=== PATIENT | male | born 1935 | race Caucasian/White ===

== ENCOUNTER 2019-09-08 14:02 | Emergency (ER) | payer MEDICARE, SELFPAY ==
--- NOTE | ~2019-09-08 | XR_ITS ---
EXAMINATION: XR humerus LT EXAM DATE: 09/08/2019 14:39 INDICATION: Initial encounter following injury, with pain of the left humerus. TECHNIQUE: Left humerus orthogonal oblique projections. Correlation is made to left shoulder exam . FINDINGS: There are no acute left humerus fractures or dislocations identified. There is no subcutan eous gas. The soft tissue is unremarkable. There are no radiopaque foreign bodies. 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 IMPRESSION: No acute osseous findings. Reviewed, dictated and finalized at location B. DENTIAL CONSTRUCTION INSTRUCTOR IMPRESSION: No acute osseous findings.
--- NOTE | 2019-09-08 14:15 | ED.UPPEXIN ---
HPI - Extremity Injury (Upper) General Chief Complaint: Extremity Injury, Upper Stated Complaint: Shoulder Pain,Elbow pain Time Seen by Provider: 09/08/19 14:15 Source: patient and RN notes reviewed History of Present Illness HPI narrative: Is an 83-year-old male that presents the urgent care with complaints of left elbow and shoulder pain due to fall on Friday. Patient states that he fell when walking at his home on the wood floor, tripping over his own feet. Patient denies any loss of consciousness. Spouse did witness the fall. States that he did not want to go to the emergency room and the fire department put him back in his bed and he fell asleep. Patient has been taking Tylenol for the pain. Patient also reports of a small skin tear to the left elbow. No other acute complaints. No acute distress noted. Patient read the plan of care. Related Data Home Medications Medication Instructions Recorded Confirmed ascorbic acid (vitamin C) 500 mg PO DAILY 09/08/19 09/08/19 baclofen 10 mg DAILY 09/08/19 09/08/19 buspirone 5 mg DAILY 09/08/19 09/08/19 clopidogrel 75 mg DAILY 09/08/19 09/08/19 lisinopril 10 mg DAILY 09/08/19 09/08/19 multivit with min-folic acid 0.4 mg PO 09/08/19 [Adult One Daily Multivitamin] potassium chloride 10 meq PO DAILY 09/08/19 09/08/19 simvastatin 20 mg DAILY 09/08/19 09/08/19 vitamin E 1,000 unit PO DAILY 09/08/19 09/08/19 Allergies Allergy/AdvReac Type Severity Reaction Status Date / Time No Known Allergies Allergy Verified 09/08/19 14:05 Review of Systems Review of Systems: Narrative: CONSTITUTIONAL: Denies fever, chills, or sweats. EYES: Denies visual changes, redness, or discharge. ENT: Denies rhinorrhea, congestion, sore throat, or otalgia. CARDIOVASCULAR: Denies chest pain, palpitations, or edema. RESPIRATORY: Denies cough or dyspnea. GASTROINTESTINAL: Denies abdominal pain, nausea, vomiting, or diarrhea. GENITOURINARY: Denies dysuria or hematuria. SKIN: Reports of abrasion to the left elbow MUSCULOSKELETAL: Reports of left elbow and left shoulder pain NEUROLOGIC: Denies headache, numbness, or weakness. PMFSH Social History Social History Gender identity (if verbalized by the patient): Male Comments At the time of my signature, I reviewed and agree with the nursing past medical, surgical, social, and family history. There is no relevant family history pertinent to the patient complaint. Exam Narrative: Exam Narrative: GENERAL: This is a well-nourished, well-developed patient, in no apparent distress. HEAD: normocephalic, atraumatic. EYES: PERRL. Sclera clear/white. Vision is grossly intact. EARS: External ears normal NOSE: External nose normal with no obvious nasal discharge THROAT: Mucous membranes moist NECK: Neck supple CARDIOVASCULAR: Regular rate and rhythm without murmurs, gallops, or rubs. GASTROINTESTINAL: Abdomen soft, non-tender, nondistended. Bowel sounds are active. No hepato-splenomegaly, or palpable masses. No guarding. SKIN: 1.5 cm linear closed abrasion noted to left elbow. Warm, intact with no suspicious lesions or rash, good texture and turgor. NEURO: awake, alert, and oriented to person, place and time. There were no obvious focal neurologic abnormalities. EXTREMITIES: No clubbing, cyanosis, or edema. Range of motion to left elbow within normal limits, to patient's ability. No obvious deformity, edema, ecchymosis, erythema to left elbow or left shoulder. Course Vital Signs Vital signs: Vital Signs Temperature 98.4 F 09/08/19 14:21 Pulse Rate 105 H 09/08/19 14:21 Respiratory Rate 16 09/08/19 14:21 Blood Pressure 112/67 09/08/19 14:21 Pulse Oximetry 98 09/08/19 14:21 Temperature 98.4 F 09/08/19 14:21 Pulse Rate 105 H 09/08/19 14:21 Respiratory Rate 16 09/08/19 14:21 Blood Pressure 112/67 09/08/19 14:21 Pulse Oximetry 98 09/08/19 14:21 Reviewed MDM - Extremity Injury (Upper) MDM Narrative Medical decision ariane
[2019-09-08 14:21] VITALS: BP 112/67; PULSE 105; RESP 16; TEMP 36.9; O2SAT 98
== END 2019-09-08 15:06 | disposition home or self-care (01) ==
PROVIDERS: Emergency Provider Nurse Practitioner Family
DX: M25.512 Pain in left shoulder (principal); S50.312A Abrasion of left elbow, initial encounter; M25.522 Pain in left elbow; W01.0XXA Fall on same level from slipping, tripping and stumbling without subsequent striking against object, initial encounter; Z86.73 Personal history of transient ischemic attack (TIA), and cerebral infarction without residual deficits; E78.00 Pure hypercholesterolemia, unspecified; I10 Essential (primary) hypertension; K21.9 Gastro-esophageal reflux disease without esophagitis; M19.90 Unspecified osteoarthritis, unspecified site; F41.9 Anxiety disorder, unspecified; F32.9 Major depressive disorder, single episode, unspecified; Z90.79 Acquired absence of other genital organ(s)
CPT/HCPCS: 73060; 99213; G0463

== ENCOUNTER 2019-09-30 16:07 | Inpatient (IN) | payer MEDICARE, SELFPAY ==
[2019-09-30] VITALS (11 sets, daily range): BP systolic 100–131; BP diastolic 65–85; PULSE 100–143; RESP 14–35; TEMP 37; O2SAT 92–100
--- NOTE | ~2019-09-30 | XR_ITS ---
EXAMINATION: XR chest 1V portable INDICATION: Hypoxemia, metabolic acidosis TECHNIQUE: Portable AP chest at 0822 hours COMPARISON: 09/30/19 FINDINGS: There are persistent retrocardiac opacities. The right lung is clear. No pleural effusion o r pneumothorax is identified. There is stable cardiomegaly. IMPRESSION: 1. Persistent retrocardiac opacities without significant change, consistent with atelectasis versus p neumonia. 2. Stable cardiomegaly. Reviewed, dictated and finalized at location A. EAR MEDICINE PET CT TECHNOLOGIST IMPRESSION: 1. Persistent retrocardiac opacities without significant change, consistent wit h atelectasis versus pneumonia. 2. Stable cardiomegaly.
--- NOTE | ~2019-09-30 | US_ITS ---
EXAMINATION: US venous doppler [facility] DATE: 10/04/2019 14:51 INDICATION: Acute pulmonary emboli. TECHNIQUE: Grayscale ultrasound images without and with compression and Doppler ultrasound images of the bilateral lower extremity veins were obtained. COMPARISON: None. FINDINGS: The visualized portions of right common femoral vein, profunda (deep) femoral vein, femoral vein, pop liteal vein, peroneal veins, posterior tibial veins, and greater saphenous vein outflow are patent. The visualized portions of left common femoral vein, profunda femoral vein, femoral vein, popliteal v ein, peroneal veins, posterior tibial veins, and greater saphenous vein outflow are patent. IMPRESSION: 1. No deep venous thrombosis. Reviewed, dictated and finalized at location A. OPERATIONS
--- NOTE | ~2019-09-30 | CT_ITS ---
EXAMINATION: CT brain wo con DATE: 09/30/2019 19:13 INDICATION: Status post fall. Headache. Patient on blood thinners. Evaluate for hemorrhage. TECHNIQUE: Computed tomography (CT) of the head was performed without intravenous contrast. The dose- length product was 605.33 mGy-cm. The mA was adjusted according to patient size. Iterative reconstruc tion technique was employed. COMPARISON: CT dated 12/15/2014 FINDINGS: There is a right parietal lobe infarction which is chronic and unchanged. Chronic right scooby lamic infarct. Chronic left lacunar infarction. There is a chronic infarction of the right mesial tem poral lobe. There is compensatory dilation of the right lateral ventricle. Generalized atrophy. No ac jean-pierre intracranial hemorrhage, infarction or mass. There is intracranial atherosclerosis. Paranasal sin uses and mastoids are pneumatized. No depressed skull fractures. There are scattered mild periventric ular and subcortical white matter changes, most likely related to small vessel ischemic disease (micr oangiopathy). IMPRESSION: 1. No acute intracranial abnormality. No significant change. Reviewed, dictated and finalized at location A. S HAND SUPERVISOR
--- NOTE | ~2019-09-30 | XR_ITS ---
EXAMINATION: XR chest 1V portable DATE: 10/07/2019 05:36 INDICATION: Infiltrates. TECHNIQUE: A single frontal view of the chest was obtained. COMPARISON: Chest single view 10/04/2019, chest CT 10/04/2019 FINDINGS: There are airspace opacities in all left lung zones with a perihilar and basilar predominan ce. There is a small left pleural effusion. No pneumothorax. The heart size is normal. IMPRESSION: 1. Worsened left lung disease, consistent with pneumonia. 2. Worsened small left pleural effusion. Reviewed, dictated and finalized at location A. OR WINDOWS SYSTEMS ADMINISTRATOR
--- NOTE | ~2019-09-30 | XR_ITS ---
XR chest 1V portable 09/30/2019 17:09 Indication: Dyspnea. History of A. fib. Procedure: AP portable chest Comparison: Comparison to multiple prior studies sequentially, with oldest reviewed study dated 11/2010. Findings: Borderline heart size. Retrocardiac airspace disease. There is an age-indeterminate left cl avicular fracture. Severe degenerative changes of the shoulders with probable rotator cuff tears. Impression: 1: Retrocardiac airspace disease may represent atelectasis or developing pneumonia. 2: Age indeterminate left clavicular fracture. 3: Cardiomegaly. Reviewed, dictated and finalized at location A. BALL INSPECTOR Impression: 1: Retrocardiac airspace disease may represent atelectasis or developing pneumo shayna. 2: Age indeterminate left clavicular fracture. 3: Cardiomegaly.
--- NOTE | ~2019-09-30 | CT_ITS ---
EXAMINATION: CTA chest PE protocol EXAM DATE: 10/04/2019 11:01 INDICATION: New onset hypoxia, acidosis, low blood pressure, shortness of breath. TECHNIQUE: Spiral CTA of the chest (pulmonary arteries) was performed with 100 cc Omnipaque 350 intr avenous contrast injection. Images were acquired during the pulmonary arterial phase. Coronal maxi mum intensity projection 3D-reconstructions were created by the technologist on dedicated workstation . Axial, coronal and sagittal reformatted images were reviewed. The dose-length product (DLP) for t his examination was 672.11 mGy-cm. The exposure was tailored according to patient size (auto mA exp osure control), and iterative reconstruction (ASIR) was used as additional dose reduction technique. Comparison is made to prior examination from 12/15/2014. Correlation was made with chest x-ray 0. FINDINGS: There are several right lower lobe segmental pulmonary emboli, low clot burden. No thorac ic aortic dissection. The lungs are clear. Small pericardial and right pleural effusions. Small to moderate left pleural effusion with adjacent subsegmental atelectasis. There is subsegmental right b asilar airspace disease probably atelectasis. There is left lower lobe superior segmental mass or consolidation, does appear to have some extension into the hilum. This measures about 6.5 x 5.0 cm. Tracheobronchial tree is patent. There is no med iastinal, hilar or axillary lymphadenopathy. There is no pneumothorax. Heart normal in size. Th ere is moderate coronary arterial calcification, arterial sclerosis. Fluid density right liver lobe hypodensity measuring 1.3 cm probably cyst. There is thoracic spondylosis without osteoblastic or os teolytic lesions identified. IMPRESSION: 1. Right lower lobe segmental pulmonary emboli. 2. Left lower lobe segmental masslike opacity, malignancy or possibly necrotic pneumonia, but appear s to have some soft tissue extension into the hilum. 3. Segmental left basilar, subsegmental right basilar atelectasis. 4. Small to moderate left, small right pleural effusions. Small pericardial effusion. I placed two phone calls, 1 to hospitalist service extension and the other to ordering clinician, was unsuccessful. Will attempt again. Reviewed, dictated and finalized at location B. ILLERY WORKER IMPRESSION: 1. Right lower lobe segmental pulmonary emboli. 2. Left lower lobe segmental masslike opacity, malignancy or possibly necrotic pneumonia, but appears to have some soft tissue extension into the hilum. 3. Segmental left basilar, subsegmental right basilar atelectasis. 4. Small to moderate left, small right pleural effusions. Small pericardial ef fusion. I placed two phone calls, 1 to hospitalist service extension and the other to [facility] behavioral [facility] clinician, was unsuccessful. Will attempt again.
--- NOTE | ~2019-09-30 | CT_ITS ---
EXAMINATION: CT brain wo con EXAM DATE: 10/04/2019 14:58 INDICATION: Change in mental status, transient alteration of awareness. TECHNIQUE: Spiral CT of the head was performed without contrast. Axial, coronal and sagittal images were reviewed. The dose-length product (DLP) for this examination was 681.00 mGy-cm. The exposure w as tailored according to patient size, and iterative reconstruction (ASIR) was used as additional dos e reduction technique. Comparison is made to prior examination from 09/30/2019. FINDINGS: There is no acute intraparenchymal hemorrhage. No evidence of intraparenchymal brain mass lesion. No evidence of acute infarction. Please note that initial head CT has limited sensitivity f or small or acute infarctions. Punctate old left basal ganglia lacunar infarction. There is mild pe riventricular and subcortical hypodensity, nonspecific but probably related to small vessel ischemic disease. There is old small right prior lobe subcortical infarction. There is small old right subinsu lar infarction. There is moderate prominence of the sulci and ventricles related to cerebral atrophy. There is intracranial carotid arteriosclerosis. There are no extra-axial collections. There is n o mass effect or midline shift. The orbits are unremarkable. Soft tissue is unremarkable. The visu alized sinuses and mastoid air cells are well aerated. There is no significant interval change. IMPRESSION: 1. No acute intracranial findings. 2. Chronic age related findings. 3. Small old infarctions. Reviewed, dictated and finalized at location B. E DOG INSTRUCTOR
--- NOTE | ~2019-09-30 | XR_ITS ---
XR lumbar spine 2-3V 09/30/2019 19:02 Indication: Low back pain Procedure: 3 views lumbar spine Comparison: 09/02/2018 Findings: Mild chronic superior endplate compression deformity of T12. There is loss of disc height a t all lumbar levels. There is moderate facet hypertrophy of the mid and lower lumbar spine. No acute fracture, subluxation or spondylolisthesis. There is levoscoliosis centered at L3-4. There are radiat ion therapy implant seeds in the prostate bed. Impression: 1: No acute abnormality of the lumbar spine. 2: Severe lumbar spondylosis with levoscoliosis. Reviewed, dictated and finalized at location A. ROLLER Impression: 1: No acute abnormality of the lumbar spine. 2: Severe lumbar spondylosis with levoscoliosis.
--- NOTE | 2019-09-30 16:21 | ECG_ITS ---
Measurements Intervals [place] Rate: 148 P: MO: 0 QRS: 68 QRSD: 98 T: -89 QT: 304 QTc: 478 Interpretive Statements ATRIAL FIBRILLATION WITH RAPID VENTRICULAR RESPONSE VENTRICULAR PREMATURE COMPLEX NONSPECIFIC ST & T-WAVE ABNORMALITY- INF/LAT LEADS BASELINE ARTIFACT- I, III, AVR, AVL, AVF, V1-V6 ABNORMAL ECG Electronically Signed On 09-30-2019 16:43:57 MOLD INSPECTOR by Tez Ramos D.O.
--- NOTE | 2019-09-30 16:37 | ED.FALL ---
HPI - Fall General Chief Complaint: Fall Stated Complaint: FALL Time Seen by Provider: 09/30/19 16:33 Source: patient and family () Mode of arrival: EMS Limitations: no limitations History of Present Illness HPI Narrative: The pt is an 84 y/o male who presents to the ED, via EMS, c/o fall. Pt's states that the pt has had some falls recently; she notes that he fell 2 weeks ago, and has experienced 3 falls in 5 weeks. Pt states that he had his hand on a chair to move it when he then fell because of how stable the chair was. He states that he was on the floor for 3 hours. He states that he did fall onto his buttocks. He states that he did not hit his head or experience LOC. Pt notes that after, he began to experience lower back pain. She states that his left foot is edematous and this began a few days ago. Pt's notes that he has been experiencing lower back pain with his other falls. 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 She also notes that he has a PMHx of bradycardia, but notes that she is unsure if he has a PMHx of AFIB. She notes that he takes Plavix. complaint: fall Fall from: standing Place fall occurred: home Loss of consciousness: none Symptoms prior to fall: none Context: tripped/slipped Location of injury: buttocks Associated symptoms (after fall): other (Lower back pain, left foot edema (Onset few days ago, per pt's )) Related Data Home Medications Medication Instructions Recorded Confirmed ascorbic acid (vitamin C) 500 mg PO DAILY 09/08/19 09/08/19 baclofen 10 mg DAILY 09/08/19 09/08/19 buspirone 5 mg DAILY 09/08/19 09/08/19 clopidogrel 75 mg DAILY 09/08/19 09/08/19 lisinopril 10 mg DAILY 09/08/19 09/08/19 multivit with min-folic acid 0.4 mg PO 09/08/19 [Adult One Daily Multivitamin] potassium chloride 10 meq PO DAILY 09/08/19 09/08/19 simvastatin 20 mg DAILY 09/08/19 09/08/19 vitamin E 1,000 unit PO DAILY 09/08/19 09/08/19 Allergies Allergy/AdvReac Type Severity Reaction Status Date / Time No Known Allergies Allergy Verified 09/08/19 14:05 Review of Systems Review of Systems: All systems reviewed & are unremarkable except as noted in HPI and below Cardiovascular: Cardiovascular: Reports leg edema (Left foot, onset few days ago per pt's ) Musculoskeletal: Musculoskeletal: Reports back pain (Lower) Neurologic: Denies other (Head injury, LOC) PMFSH Past Medical History Medical History (Updated 09/30/19 @ 20:22 by Francis Mancilla MD) Bradycardia CVA (cerebral vascular accident) Residual left-sided weakness GERD (gastroesophageal reflux disease) HLD (hyperlipidemia) HTN (hypertension) Hx of brachytherapy Inguinal hernia Prostate cancer TIA (transient ischemic attack) Surgical History Surgical History (Updated 09/30/19 @ 16:50 by Jian Eden) H/O inguinal hernia repair Hx of tonsillectomy Social History Social History (Updated 09/30/19 @ 16:51 by Jian Eden) Smoking status: Former smoker Gender identity (if verbalized by the patient): Male Exam Narrative: Exam Narrative: General appearance: Well-developed, well-nourished Skin: Normal color Head: Normocephalic, nontraumatic Eyes: Clear conjunctiva ENT: Oropharynx normal, ears normal, nose normal Neck: Supple, nontender Chest and respiratory: Airway patent, no respiratory distress, no accessory muscle use Heart: Tachycardia, irregular irregularity Abdomen: Soft, nontender, no organomegaly, quiet bowel sounds Vascular: Normal peripheral pulses, normal capillary refill. Musculoskeletal: Normal range of motion, nontender back Neurologic: Alert and oriented ?3, left hemiplegia
[2019-09-30 17:26] LABS: Basophils Absolute Auto 0.1 K/mm3 (0.0-0.1); Basophils Percent Auto 0.6 % (0.2-1.2); Eosinophils Percent Auto 0.1 % (0-4.4); Hematocrit 34.5 % (42.0-52.0); Hemoglobin 10.8 g/dL (14.0-18.0); Immature Granulocyte Absolute 0.23 K/mm3 (0.00-0.031); Immature Granulocyte Percent A 1.8 % (0-0.5); Lymphocytes Absolute Auto 1.26 K/mm3 (0.9-3.2); Lymphocytes Percent Auto 10.1 % (18.3-44.2); Mean Corpuscular HGB Conc 31.3 g/dl (32-36); Mean Corpuscular Hemoglobin 29.5 pg (26-34); Mean Corpuscular Volume 94.3 fl (80-100); Mean Platelet Volume 11.8 fl (7.4-10.4); Monocytes Absolute Auto 1.1 K/mm3 (0.1-0.6); Monocytes Percent Auto 8.8 % (2.6-8.5); Neutrophils Absolute Auto 9.8 K/mm3 (1.3-6.7); Neutrophils Percent Auto 78.6 % (45.5-73.1); Platelet Count Result 345 k/mm3 (150-375); Red Blood Count 3.66 M/mm3 (4.6-6.20); White Blood Count 12.5 K/mm3 (4.5-10.0)
[2019-09-30 17:31] LABS: INR 1.1; Prothrombin Time 13.6 Seconds (11.1-14.7)
[2019-09-30 17:32] LABS: Partial Thromboplastin Time 28.1 SECONDS (22.3-36.8)
[2019-09-30 17:33] LABS: Alanine Aminotransferase 18 U/L (4-50); Albumin Level 3.9 g/dL (3.5-5.1); Alkaline Phosphatase 130 U/L (38-126); Aspartate Amino Transferase 33 U/L (17-59); Bilirubin,Total 0.9 mg/dL (0.2-1.3); Blood Urea Nitrogen 22 mg/dL (9-20); Calcium 9.3 mg/dL (8.4-10.2); Carbon Dioxide 27 mmol/L (22-30); Chloride 100 mmol/L (98-107); Estimated CRCL calculation 42 ml/min; Estimated Glomerular Filt Rate > 60; Glucose 105 mg/dL (75-110); Potassium 4.3 mmol/L (3.4-5.0); Sodium 140 mmol/L (137-145)
[2019-09-30 17:45] LABS: NT Pro B Type Natriuretic Pept 4200 PG/ML (5-100); Troponin I < 0.012 ng/mL (0.000-0.034)
[2019-09-30 17:59] LABS: INR 1.2; Partial Thromboplastin Time 28.4 SECONDS (22.3-36.8); Prothrombin Time 14.4 Seconds (11.1-14.7)
[2019-09-30 18:01] LABS: Basophils Absolute Auto 0.1 K/mm3 (0.0-0.1); Basophils Percent Auto 0.6 % (0.2-1.2); Eosinophils Percent Auto 0.1 % (0-4.4); Hematocrit 31.2 % (42.0-52.0); Hemoglobin 9.9 g/dL (14.0-18.0); Immature Granulocyte Absolute 0.25 K/mm3 (0.00-0.031); Immature Granulocyte Percent A 1.9 % (0-0.5); Lymphocytes Absolute Auto 1.69 K/mm3 (0.9-3.2); Lymphocytes Percent Auto 12.9 % (18.3-44.2); Mean Corpuscular HGB Conc 31.7 g/dl (32-36); Mean Corpuscular Volume 94.5 fl (80-100); Mean Platelet Volume 11.7 fl (7.4-10.4); Monocytes Absolute Auto 1.2 K/mm3 (0.1-0.6); Monocytes Percent Auto 8.9 % (2.6-8.5); Neutrophils Absolute Auto 9.9 K/mm3 (1.3-6.7); Neutrophils Percent Auto 75.6 % (45.5-73.1); Platelet Count Result 310 k/mm3 (150-375); Red Cell Distribution Width 16.8 % (11.5-14.5); White Blood Count 13.1 K/mm3 (4.5-10.0)
[2019-09-30] MEDS: ENOXAPARIN 80 MG/0.8 ML SYRINGE 70 MG SUB-Q (20:09)
[2019-09-30 20:48] LABS: Troponin I < 0.012 ng/mL (0.000-0.034)
--- NOTE | 2019-09-30 21:09 | PC.NURSE ---
Per Sal in pharmacy, Cardizem and Lovaquin are compatible for IV infusion together.
--- NOTE | 2019-09-30 21:34 | PC.NURSE ---
Per EDP Laurent, decrease Cardizem to 5mL/hr due to patient's blood pressure.
[2019-09-30 23:40] LABS: Troponin I 0.013 ng/mL (0.000-0.034)
[2019-10-01] VITALS (15 sets, daily range): BP systolic 91–113; BP diastolic 54–69; PULSE 96–120; RESP 18–32; TEMP 36.2–37.4; O2SAT 95–100; BMI 22.4
--- NOTE | 2019-10-01 00:25 | PM.IMHP ---
H&P: HPI History of Present Illness Chief complaint: Fall Narrative: Date and time of patient contact: 09/30/2019 at 10:35 p.m. Hilton Joiner is a 84 year old male with a past medical history of hypertension and prior history of atrial fibrillation found on old records who presented to the ER due to a fall. The patient has had 3 falls in the last 5 weeks. Patient was reportedly on the floor for about 3 hours when he fell due to the chair being unstable. Patient reportedly fell onto his buttocks but did not hit his head or lose consciousness. The patient cried out multiple times during my evaluation with no stimulation. He complained that the tape on his arm was causing excruciating pain. He complained that the blankets that were lying across his chest were laying across his neck and causing him discomfort. He was restless and was a difficult historian at best. I offered to help the patient reposition and he was unwilling to reposition. According to the ER notes the patient did experience some low back pain after the fall. His also reported that the patient's left foot was edematous and that the edema acute began a few days ago. The patient has chronic left-sided weakness and ambulates with a cane. His reported that he had history of bradycardia but was unsure if the patient has history of atrial fibrillation. He did have an event monitor placed September 2017. Patient was alert and oriented times 2-3 at the time of my evaluation. Source of information is ER records as the patient self is a poor historian. Review of Systems Review of Systems: ROS unobtainable: unobtainable due to mental status [facility] Past Medical History Medical History (Updated 10/01/19 @ 00:51 by Kita Apodaca DO) Bradycardia CVA (cerebral vascular accident) Residual left-sided weakness ataxia and vertigo 2010 with recurrent CVA February 2013 with right parietal lobe subacute infarction Diastolic dysfunction Noted on echocardiogram from April 2018 with pseudonormal grade 2 diastolic dysfunction and eat ejection fraction of 70-75%. Mild right ventricular hypokinesis, mild mitral valve regurgitation, mild left atrial enlargement GERD (gastroesophageal reflux disease) HLD (hyperlipidemia) HTN (hypertension) Hx of brachytherapy Prostate cancer Status post brachytherapy 2007 TIA (transient ischemic attack) Surgical History Surgical History (Updated 10/01/19 @ 00:49 by Kita Apodaca DO) H/O inguinal hernia repair Left History of bilateral cataract extraction Hx of tonsillectomy Family History Family History (Updated 10/01/19 @ 00:47 by Kita Apodaca DO) Daughter Breast cancer Sibling Cerebrovascular accident Social History Social History (Updated 10/01/19 @ 00:52 by Kita Apodaca DO) Social History: 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 He has been to his for 53 years. He is a former smoker and quit smoking in 1964. He occasionally drinks a glass of wine. Code status: Full code per EMR Smoking status: Former smoker Gender identity (if verbalized by the patient): Male Meds Home Medications and Allergies Home Medications Medication Instructions Recorded Confirmed Type ascorbic acid (vitamin C) 500 mg PO DAILY 09/08/19 09/30/19 History baclofen 10 mg PO DAILY 09/08/19 10/01/19 History buspirone 5 mg PO DAILY 09/08/19 10/01/19 History clopidogrel 75 mg PO DAILY 09/08/19 10/01/19 History lisinopril 10 mg PO DAILY 09/08/19 10/01/19 History multivit with min-folic acid 0.4 mg PO DAILY 09/08/19 09/30/19 History [Adult One Daily Multivitamin] potassium chloride 20 meq PO DAILY 09/08/19 09/30/19 History simvastatin 20 mg PO HS 09/08/19 10/01/19 History vitamin E 1,000 unit PO DAILY 09/08/19 09/30/19 History Allergies Allergy/AdvReac Type Severity Reaction Status Date / Time No Known Allergies Allergy Verified 09/08/19
[2019-10-01] MEDS: QUEtiapine FUMARATE 12.5 MG TABLET PO (00:48)
[2019-10-01 04:28] LABS: Basophils Percent Auto 0.4 % (0.2-1.2); Eosinophils Percent Auto 0.1 % (0-4.4); Hematocrit 29.3 % (42.0-52.0); Hemoglobin 9.5 g/dL (14.0-18.0); Immature Granulocyte Absolute 0.17 K/mm3 (0.00-0.031); Immature Granulocyte Percent A 1.5 % (0-0.5); Lymphocytes Absolute Auto 1.88 K/mm3 (0.9-3.2); Mean Corpuscular HGB Conc 32.4 g/dl (32-36); Mean Corpuscular Hemoglobin 30.1 pg (26-34); Mean Corpuscular Volume 92.7 fl (80-100); Mean Platelet Volume 10.6 fl (7.4-10.4); Monocytes Absolute Auto 1.2 K/mm3 (0.1-0.6); Monocytes Percent Auto 10.8 % (2.6-8.5); Neutrophils Absolute Auto 7.8 K/mm3 (1.3-6.7); Neutrophils Percent Auto 70.2 % (45.5-73.1); Platelet Count Result 271 k/mm3 (150-375); Red Blood Count 3.16 M/mm3 (4.6-6.20); Red Cell Distribution Width 16.7 % (11.5-14.5); White Blood Count 11.1 K/mm3 (4.5-10.0)
[2019-10-01 04:41] LABS: Blood Urea Nitrogen 19 mg/dL (9-20); Carbon Dioxide 29 mmol/L (22-30); Chloride 98 mmol/L (98-107); Estimated CRCL calculation 42 ml/min; Estimated Glomerular Filt Rate > 60; Glucose 98 mg/dL (75-110); Potassium 4.8 mmol/L (3.4-5.0); Sodium 136 mmol/L (137-145)
[2019-10-01 05:18] LABS: Iron 30 ug/dL (49-181)
[2019-10-01 05:27] LABS: Percent Iron Saturation 14 % (20-50)
[2019-10-01 05:49] LABS: Folic Acid > 20.0 ng/mL (2.76->20)
--- NOTE | 2019-10-01 06:00 | ECG_ITS ---
Measurements Intervals [place] Rate: 117 P: [place]: 0 QRS: 60 QRSD: 93 T: -90 QT: 353 QTc: 494 Interpretive Statements ATRIAL FIBRILLATION WITH RAPID VENTRICULAR RESPONSE DELAYED PRECORDIAL R/S TRANSITION NONSPECIFIC ST & T-WAVE ABNORMALITY- INF/LAT LEADS BASELINE ARTIFACT- I, II, III, AVL, AVF, V1-V6 ABNORMAL ECG Electronically Signed On 10-01-2019 8:31:13 TOLL MECHANIC by Tez Ramos D.O.
[2019-10-01] MEDS: ENOXAPARIN 80 MG/0.8 ML SYRINGE 65 MG SUB-Q ×2 (10:29→20:09)
--- NOTE | 2019-10-01 11:08 | PM.IMPN ---
Progress Note: A&P Assessment and Plan (1) Atrial fibrillation with RVR: Code(s): I48.91 - Unspecified atrial fibrillation Status: Acute Assessment and Plan: Continue diltiazem IV Add metoprolol Attempt transition to p.o. meds once heart rate is well controlled Continue Lovenox at present PT and OT with heart rate controlled Unless he can demonstrate better stability and lower fall risk he is not a candidate for long-term anticoagulation in spite of his extremely high stroke risk Discussed at bedside with patient and spouse (2) Pneumonia: Qualifiers: Laterality: unspecified laterality Lung location: unspecified part of lung Pneumonia type: due to unspecified organism Qualified Code(s): J18.9 - Pneumonia, unspecified organism Code(s): J18.9 - Pneumonia, unspecified organism Status: Acute Assessment and Plan: Patient received Levaquin emergency department Transitioned to doxycycline and ceftriaxone (3) Anemia: Qualifiers: Anemia type: unspecified type Qualified Code(s): D64.9 - Anemia, unspecified Code(s): D64.9 - Anemia, unspecified Status: Acute Assessment and Plan: Iron studies consistent with anemia of chronic disease Continue to monitor H&H Stool for occult blood pending (4) Closed fracture of left clavicle: Qualifiers: Clavicle location: unspecified part of clavicle Encounter type: sequela Fracture alignment: nondisplaced Qualified Code(s): S42.002S - Fracture of unspecified part of left clavicle, sequela Code(s): S42.002A - Fracture of unspecified part of left clavicle, initial encounter for closed fracture Status: Acute Assessment and Plan: Age insert Conservative management Subjective Date/time seen: 10/01/19 11:08 Interval history: Admitted September 30 with pneumonia, atrial fibrillation with RVR. Patient was not aware of any atrial fibrillation past. 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 Complains of some low back pain. No radiation. Better with heating pad. Still with some cough. No chest pain or palpitation. No history of bleeding. No GI or complaints. Review of Systems Review of Systems: All systems reviewed & are unremarkable except as noted in HPI and below Exam Narrative: Exam Narrative: HEENT: EOMI, PERRL, pharyngeal mucosa pink and intact NECK: No JVD CHEST: Coarse breath sounds. HEART: NL S1/S2, irregular, tachycardic ABDOMEN: BS+, soft, nontender, no mass, no bruits EXTREMITIES: No cyanosis, edema, or clubbing NEUROLOGIC: CN intact and symmetric to inspection. MUSCULOSKELETAL: Moderate left hemiparesis with facial droop PSYCH: Alert. Oriented to person, place, and time, including month and year. Objective Data Vital Signs Vital Signs: Vital Signs - 24 hr 09/30/19 16:43 09/30/19 17:53 09/30/19 18:00 Temperature 98.6 F Pulse Rate 143 H 118 H 130 H Respiratory Rate 24 H 35 H 24 H Blood Pressure 119/84 Pulse Oximetry 98 09/30/19 18:01 09/30/19 18:15 09/30/19 18:16 Temperature Pulse Rate 121 H 141 H 124 H Respiratory Rate 32 H Blood Pressure 108/67 101/65 Pulse Oximetry 100 09/30/19 18:30 09/30/19 18:31 09/30/19 19:29 Temperature Pulse Rate 132 H 119 H 123 H Respiratory Rate 14 Blood Pressure 104/76 131/85 Pulse Oximetry 99 92 98 09/30/19 20:23 09/30/19 21:20 10/01/19 00:00 Temperature Pulse Rate 127 H 100 115 H Respiratory Rate 24 H 18 18 Blood Pressure 100/85 102/84 Pulse Oximetry 97 98 98 10/01/19 04:00 Temperature Pulse Rate 120 H Respiratory Rate 18 Blood Pressure Pulse Oximetry 98 Intake/Output Intake/Output: Intake & Output 09/28/19 09/29/19 09/30/19 10/01/19 23:59 23:59 23:59 23:59 Intake Total 150 Balance 150 Meds/Results Medications: Active Medications Generic Name Dose Route Start Last Admin Trade Name Freq PRN Reaso
--- NOTE | 2019-10-01 11:24 | ECHO_ITS ---
Patient Info Name: Hilton Joiner Age: 84 years : 1935 Gender: Male Ht: 67 in Wt: 143 lbs BSA: 1.75 m2 HR: 98 bpm BP: 104 / 84 mmHg Technical Quality: Good Exam Date: 10/01/2019 1:11 PM Exam Location: [facility] Pulmonary Exam Room: ICU03 Patient Status: Inpatient Admit Date: 09/30/2019 Staff Ordering Physician: Prosper Alston MD Building Engineer: Elke Gomes RCS Attending Provider: Kita Apodaca DO Referring Physician: Alecia MONROE; Exam Type: CA echo doppler color flow Study Info Indications - bradycardia Complete two-dimensional, color flow and Doppler transthoracic echocardiogram is performed. Summary 1. Left ventricular chamber dimension is normal. 2. Left ventricular systolic function is normal, estimated at 50-55%. 3. The left ventricular diastolic function is indeterminate. 4. Tissue doppler is not performed. 5. Patient is in atrial fibrillation. 6. Right ventricular chamber dimension is mildly enlarged. 7. Right ventricular systolic function is reduced. 8. Left atrial chamber dimension is moderately enlarged. 9. Right atrial chamber dimension is moderately enlarged. 10. There is mild aortic valve sclerosis. 11. The mitral valve has mildly calcified annulus. 12. There is moderate mitral valve regurgitation. 13. There is mild to moderate tricuspid valve regurgitation. 14. Right ventricular systolic pressure is 36 mmHg which suggests normal pulmonary pressure. 15. There is trace pulmonic regurgitation. 16. Dilated inferior vena cava with <50% collapse upon inspiration consistent with significantly elevated right atrial pressure, 15 mmHg. Left Ventricle Tissue doppler is not performed. Patient is in atrial fibrillation. Left ventricular chamber dimension is normal. Left ventricular systolic function is normal, estimated at 50-55%. The left ventricular diastolic function is indeterminate. Right Ventricle Right ventricular chamber dimension is mildly enlarged. Right ventricular systolic function is reduced. Left Atria Left atrial chamber dimension is moderately enlarged. Right Atria Right atrial chamber dimension is moderately enlarged. Aortic Valve The aortic valve is trileaflet. There is mild aortic valve sclerosis. There is no aortic valve stenosis. There is no aortic valve regurgitation. Pulmonic Valve There is trace pulmonic regurgitation. Mitral Valve The mitral valve has mildly calcified annulus. There is no mitral valve stenosis. There is moderate mitral valve regurgitation. Tricuspid Valve There is mild to moderate tricuspid valve regurgitation. Right ventricular systolic pressure is 36 mmHg which suggests normal pulmonary pressure. Pericardium/Pleural There is no pericardial effusion. Inferior Vena Cava Dilated inferior vena cava with <50% collapse upon inspiration consistent with significantly elevated right atrial pressure, 15 mmHg. Aorta The aortic root size at the sinus of Valsalva is normal. Tricuspid Valve Name Value Normal Estimated PAP/RSVP RA Pressure 15 mmHg <=5 Report Signatures
[2019-10-01] MEDS: METOPROLOL TARTRATE 25 MG TABLET PO ×3 (12:14→20:08)
[2019-10-01] MEDS: DOXYCYCLINE HYCLATE 100 MG TABLET PO (20:09)
--- NOTE | 2019-10-01 23:50 | ADMGEN ---
This patient, Hilton Joiner, was transferred to IMU Room 205-02. Report given to Yoon WALLIS.
[2019-10-02] VITALS (16 sets, daily range): BP systolic 99–144; BP diastolic 71–121; PULSE 74–120; RESP 18–22; TEMP 36.3–37.9; O2SAT 92–100
[2019-10-02] MEDS: ACETAMINOPHEN 325 MG TABLET 650 MG PO ×3 (00:32→20:23)
--- NOTE | 2019-10-02 03:14 | ADMGEN ---
This patient, Hilton Joiner, was received from ICU to IMU Room 205-02. Report obtained from KADI Gar. Patient/family oriented to hospital policies and general routines including ID bracelet, bed and alarms, visiting hours, pain management, procedures, bathroom and other care routines, personal items, smoking policy, room service/diet, and visiting hours. Valuables list has been completed. Information on how to activate the Rapid Response Team has been discussed. Patient/Family are encouraged to report perceived risks to care and to ask questions if they do not understand what they are told or what they should do.
[2019-10-02 09:33] LABS: Hematocrit 30.9 % (42.0-52.0); Hemoglobin 9.8 g/dL (14.0-18.0); Mean Corpuscular HGB Conc 31.7 g/dl (32-36); Mean Corpuscular Hemoglobin 29.9 pg (26-34); Mean Corpuscular Volume 94.2 fl (80-100); Mean Platelet Volume 11.5 fl (7.4-10.4); Platelet Count Result 298 k/mm3 (150-375); Red Blood Count 3.28 M/mm3 (4.6-6.20); White Blood Count 12.8 K/mm3 (4.5-10.0)
[2019-10-02 09:41] LABS: Blood Urea Nitrogen 25 mg/dL (9-20); Calcium 9.1 mg/dL (8.4-10.2); Carbon Dioxide 23 mmol/L (22-30); Chloride 98 mmol/L (98-107); Estimated CRCL calculation 33 ml/min; Estimated Glomerular Filt Rate 53; Glucose 101 mg/dL (75-110); Potassium 4.4 mmol/L (3.4-5.0); Sodium 136 mmol/L (137-145)
[2019-10-02] MEDS: METOPROLOL SUCCINATE EXT REL 100 MG TABCR PO (10:09)
[2019-10-02] MEDS: DOXYCYCLINE HYCLATE 100 MG TABLET PO ×2 (10:10→20:24)
[2019-10-02] MEDS: ENOXAPARIN 80 MG/0.8 ML SYRINGE 65 MG SUB-Q (10:11)
--- NOTE | 2019-10-02 10:13 | PM.IMPN ---
Progress Note: A&P Assessment and Plan (1) Atrial fibrillation with RVR: Code(s): I48.91 - Unspecified atrial fibrillation Status: Acute Assessment and Plan: Continue PO Metoprolol succinate 100mg, Diltiazem CD 360mg daily 10/02 added digoxin 250mcg daily 10/02 to med tele Discussed at bedside with patient and spouse (2) Pneumonia: Qualifiers: Laterality: unspecified laterality Lung location: unspecified part of lung Pneumonia type: due to unspecified organism Qualified Code(s): J18.9 - Pneumonia, unspecified organism Code(s): J18.9 - Pneumonia, unspecified organism Status: Acute Assessment and Plan: Patient received Levaquin emergency department Transitioned to doxycycline and ceftriaxone Day 3 antibiotics (3) Anemia: Qualifiers: Anemia type: unspecified type Qualified Code(s): D64.9 - Anemia, unspecified Code(s): D64.9 - Anemia, unspecified Status: Acute Assessment and Plan: Iron studies consistent with anemia of chronic disease Continue to monitor H&H Stool for occult blood (4) Closed fracture of left clavicle: Qualifiers: Clavicle location: unspecified part of clavicle Encounter type: sequela Fracture alignment: nondisplaced Qualified Code(s): S42.002S - Fracture of unspecified part of left clavicle, sequela Code(s): S42.002A - Fracture of unspecified part of left clavicle, initial encounter for closed fracture Status: Acute Assessment and Plan: Age inderterminate Conservative management Subjective Date/time seen: 10/02/19 10:13 Interval history: Confused last night. Did not sleep well. Ate fairly well. Denied pain or sob. No gi/gu c/o. No bleeding. Review of Systems Review of Systems: All systems reviewed & are unremarkable except as noted in HPI and below Exam Narrative: Exam Narrative: HEENT: EOMI, PERRL, pharyngeal mucosa pink and intact NECK: No JVD CHEST: Coarse breath sounds. HEART: NL S1/S2, irregular, tachycardic ABDOMEN: BS+, soft, nontender, no mass, no bruits EXTREMITIES: No cyanosis, edema, or clubbing NEUROLOGIC: CN intact and symmetric to inspection. MUSCULOSKELETAL: Moderate left hemiparesis with facial droop PSYCH: Alert. Oriented to person, place, and time, including month and year. Objective Data Vital Signs Vital Signs: Vital Signs - 24 hr 10/01/19 12:00 10/01/19 12:14 10/01/19 14:00 Temperature Pulse Rate 112 H 112 H 107 H Respiratory Rate 26 H Blood Pressure Pulse Oximetry 10/01/19 16:00 10/01/19 16:35 10/01/19 18:00 Temperature 99.4 F Pulse Rate 102 H 98 120 H Respiratory Rate 32 H Blood Pressure 97/62 L Pulse Oximetry 98 10/01/19 20:00 10/01/19 20:08 10/01/19 20:15 Temperature 98.0 F Pulse Rate 100 109 H 103 H Respiratory Rate 26 H Blood Pressure 113/69 Pulse Oximetry 95 10/01/19 22:00 10/02/19 00:00 10/02/19 02:00 Temperature 100.2 F H Pulse Rate 98 116 H 87 Respiratory Rate 22 H Blood Pressure 144/121 H Pulse Oximetry 98 10/02/19 04:00 10/02/19 06:00 10/02/19 09:00 Temperature 97.9 F 97.4 F L Pulse Rate 108 H 100 113 H Respiratory Rate 18 22 H Blood Pressure 133/74 107/78 Pulse Oximetry 99 100 10/02/19 10:09 Temperature Pulse Rate 108 H Respiratory Rate Blood Pressure Pulse Oximetry Intake/Output Intake/Output: Intake & Output 09/29/19 09/30/19 10/01/19 10/02/19 23:59 23:59 23:59 23:59 Intake Total 150 970 120 Output Total 500 450 Balance 150 470 -330 Meds/Results Medications: Active Medications Generic Name Dose Route Start Last Admin Trade Name Freq PRN Reason Stop Dose Admin Acetaminophen 650 mg 09/30/19 20:23 10/02/19 10:10 Tylenol Tablet PO 650 mg Q4H PRN Administration Mild Pain (1-3) or Fever Digoxin 250 mcg 10/02/19 10:10 Lanoxin Inj IV PUSH 10/02/19 10:11 ONCE ONE Digoxin 250 mcg
[2019-10-02] MEDS: DIGOXIN INJ 250 MCG/ML 2 ML AMP (*BKC) IV PUSH (10:28)
--- NOTE | 2019-10-02 16:06 | PC.NURSE ---
Pt transfer from IMU on today to room 255 at 1420 by bed, at bedside call light in reach. Oriented to this unit ,pt is very confused.
[2019-10-02] MEDS: busPIRone HCL 5 MG TABLET PO (17:02)
[2019-10-02] MEDS: CLOPIDOGREL BISULFATE 75 MG TABLET PO (17:03)
[2019-10-02] MEDS: SIMVASTATIN 20 MG TABLET PO (20:24)
[2019-10-03] VITALS (18 sets, daily range): BP systolic 119–151; BP diastolic 62–117; PULSE 67–122; RESP 16–26; TEMP 36.3–36.7; O2SAT 60–97
[2019-10-03] MEDS: METOPROLOL TARTRATE 25 MG TABLET PO (08:06)
[2019-10-03] MEDS: DIGOXIN INJ 250 MCG/ML 2 ML AMP (*BKC) IV PUSH (08:07)
[2019-10-03 08:08] LABS: Hematocrit 30.1 % (42.0-52.0); Hemoglobin 9.5 g/dL (14.0-18.0); Mean Corpuscular HGB Conc 31.6 g/dl (32-36); Mean Corpuscular Hemoglobin 29.3 pg (26-34); Mean Corpuscular Volume 92.9 fl (80-100); Mean Platelet Volume 11.3 fl (7.4-10.4); Platelet Count Result 325 k/mm3 (150-375); Red Blood Count 3.24 M/mm3 (4.6-6.20); Red Cell Distribution Width 16.9 % (11.5-14.5); White Blood Count 12.4 K/mm3 (4.5-10.0)
[2019-10-03] MEDS: CLOPIDOGREL BISULFATE 75 MG TABLET PO (08:09)
[2019-10-03] MEDS: ASPIRIN 81 MG ENTERIC TABLET PO (08:09)
[2019-10-03] MEDS: busPIRone HCL 5 MG TABLET PO (08:09)
[2019-10-03] MEDS: DOXYCYCLINE HYCLATE 100 MG TABLET PO ×2 (08:09→20:23)
[2019-10-03 08:20] LABS: Blood Urea Nitrogen 34 mg/dL (9-20); Carbon Dioxide 23 mmol/L (22-30); Chloride 102 mmol/L (98-107); Estimated CRCL calculation 30 ml/min; Estimated Glomerular Filt Rate 48; Glucose 112 mg/dL (75-110); Potassium 4.1 mmol/L (3.4-5.0); Sodium 139 mmol/L (137-145)
[2019-10-03] MEDS: METOPROLOL SUCCINATE EXT REL 100 MG TABCR 200 MG PO (10:25)
[2019-10-03] MEDS: DIGOXIN 250 MCG TABLET PO (11:50)
--- NOTE | 2019-10-03 14:24 | PM.IMPN ---
Progress Note: A&P Assessment and Plan (1) Atrial fibrillation with RVR: Code(s): I48.91 - Unspecified atrial fibrillation Status: Acute Assessment and Plan: Continue PO Metoprolol succinate 100mg, Diltiazem CD 360mg daily 10/02 added digoxin 250mcg daily 10/02 to med tele 10/03 additional digoxin and increased metoprolol this AM due to HR 110s to 130s, now improved (2) Pneumonia: Qualifiers: Laterality: unspecified laterality Lung location: unspecified part of lung Pneumonia type: due to unspecified organism Qualified Code(s): J18.9 - Pneumonia, unspecified organism Code(s): J18.9 - Pneumonia, unspecified organism Status: Acute Assessment and Plan: Patient received Levaquin emergency department Transitioned to doxycycline and ceftriaxone Day 4 antibiotics (3) Anemia: Qualifiers: Anemia type: unspecified type Qualified Code(s): D64.9 - Anemia, unspecified Code(s): D64.9 - Anemia, unspecified Status: Acute Assessment and Plan: Iron studies consistent with anemia of chronic disease Continue to monitor H&H Stool for occult blood (4) Closed fracture of left clavicle: Qualifiers: Clavicle location: unspecified part of clavicle Encounter type: sequela Fracture alignment: nondisplaced Qualified Code(s): S42.002S - Fracture of unspecified part of left clavicle, sequela Code(s): S42.002A - Fracture of unspecified part of left clavicle, initial encounter for closed fracture Status: Acute Assessment and Plan: Age inderterminate Conservative management (5) Anxiety: Code(s): F41.9 - Anxiety disorder, unspecified Status: Acute Assessment and Plan: stop buspirone start sertraline and prn lorazepam Subjective Date/time seen: 10/03/19 14:24 Interval history: Very agitated today. Does not know why. Denied pain. Restless. Anxious. Ate fairly well. No CP or sob. No gi/gu c/o. No abnormal bleeding. Chronic left weakness stable. Review of Systems Review of Systems: All systems reviewed & are unremarkable except as noted in HPI and below Exam Narrative: Exam Narrative: HEENT: EOMI, PERRL, pharyngeal mucosa pink and intact NECK: No JVD CHEST: Coarse breath sounds. HEART: NL S1/S2, irregular, tachycardic ABDOMEN: BS+, soft, nontender, no mass, no bruits EXTREMITIES: No cyanosis, edema, or clubbing NEUROLOGIC: CN intact and symmetric to inspection. MUSCULOSKELETAL: Moderate left hemiparesis with facial droop PSYCH: Alert. Oriented to person, and time, including month and year, BUT THOUGHT HE WAS AT [employer] WATCHING [employer] (he was watching on TV). Objective Data Vital Signs Vital Signs: Vital Signs - 24 hr 10/02/19 16:00 10/02/19 18:00 10/02/19 18:22 Temperature 97.5 F L Pulse Rate 94 107 H 94 Respiratory Rate 18 Blood Pressure 99/76 L Pulse Oximetry 92 10/02/19 20:00 10/02/19 22:00 10/03/19 00:00 Temperature 98.8 F Pulse Rate 120 H 74 102 H Respiratory Rate 22 H Blood Pressure 105/71 Pulse Oximetry 100 10/03/19 04:00 10/03/19 05:03 10/03/19 06:00 Temperature 97.6 F Pulse Rate 105 H 122 H Respiratory Rate 24 H Blood Pressure 140/62 Pulse Oximetry 97 10/03/19 08:06 10/03/19 08:07 10/03/19 10:20 Temperature Pulse Rate 122 H 122 H 113 H Respiratory Rate Blood Pressure 119/64 Pulse Oximetry 95 10/03/19 10:25 10/03/19 11:50 10/03/19 12:09 Temperature 97.3 F L Pulse Rate 109 H 113 H Respiratory Rate 20 Blood Pressure Pulse Oximetry 10/03/19 14:00 Temperature 97.3 F L Pulse Rate 103 H Respiratory Rate 26 H Blood Pressure 131/104 H Pulse Oximetry 94 Intake/Output Intake/Output: Intake & Output 09/30/19 10/01/19 10/02/19 10/03/19 23:59 23:59 23:59 23:59 Intake Total 150 970 650 385 Output Total 500 451 Balance 150 470 199 385 Meds/Results Medications: Active
[2019-10-03] MEDS: LORAZEPAM INJ 2 MG/ML VIAL 1 MG IV PUSH ×2 (14:37→17:04)
[2019-10-03] MEDS: SERTRALINE HCL 25 MG TABLET PO (14:42)
--- NOTE | 2019-10-03 16:13 | PCPTNOTE ---
RN informed therapist to keep pt in bed due to the medication she just gave him. Attempted to see pt this PM for physical therapy but pt was very agitated and refused bed exercises.
--- NOTE | 2019-10-03 17:02 | PCOTNOTE ---
The patient treatment was not able to be completed on [10/03/2019]. Will plan to continue treatment per plan of care.
[2019-10-03] MEDS: MORPHINE SULFATE 2 MG/ML INJ IV PUSH (17:05)
[2019-10-03] MEDS: SIMVASTATIN 20 MG TABLET PO (20:23)
[2019-10-03] MEDS: LORAZEPAM INJ 2 MG/ML VIAL 0.5 MG IV PUSH (20:33)
[2019-10-03] MEDS: QUEtiapine FUMARATE 25 MG TABLET PO (22:04)
[2019-10-04] VITALS (13 sets, daily range): BP systolic 102–147; BP diastolic 48–81; PULSE 62–113; RESP 16; TEMP 36.1–36.7; O2SAT 94–96
[2019-10-04 06:26] LABS: Blood Urea Nitrogen 40 mg/dL (9-20); Calcium 9.8 mg/dL (8.4-10.2); Carbon Dioxide 15 mmol/L (22-30); Chloride 109 mmol/L (98-107); Estimated CRCL calculation 33 ml/min; Estimated Glomerular Filt Rate 53; Glucose 122 mg/dL (75-110); Potassium 6.1 mmol/L (3.4-5.0); Sodium 143 mmol/L (137-145)
[2019-10-04 06:32] LABS: Digoxin 1.2 ng/mL (0.8-2.0)
[2019-10-04 06:52] LABS: Potassium 4.3 mmol/L (3.4-5.0)
[2019-10-04] MEDS: SODIUM BICARBONATE 8.4% 50 MEQ/50 ML VIAL 60 MEQ IV PUSH ×2 (07:14→07:16)
[2019-10-04 07:39] LABS: Hematocrit 29.6 % (42.0-52.0); Hemoglobin 9.3 g/dL (14.0-18.0); Mean Corpuscular HGB Conc 31.4 g/dl (32-36); Mean Corpuscular Hemoglobin 29.9 pg (26-34); Mean Corpuscular Volume 95.2 fl (80-100); Mean Platelet Volume 11.6 fl (7.4-10.4); Platelet Count Result 305 k/mm3 (150-375); Red Blood Count 3.11 M/mm3 (4.6-6.20); Red Cell Distribution Width 17.1 % (11.5-14.5); White Blood Count 11.9 K/mm3 (4.5-10.0)
[2019-10-04 07:44] LABS: Blood Urea Nitrogen 39 mg/dL (9-20); Calcium 8.7 mg/dL (8.4-10.2); Carbon Dioxide 32 mmol/L (22-30); Chloride 102 mmol/L (98-107); Estimated CRCL calculation 38 ml/min; Estimated Glomerular Filt Rate > 60; Glucose 109 mg/dL (75-110); Potassium 4.1 mmol/L (3.4-5.0); Sodium 140 mmol/L (137-145)
[2019-10-04 07:45] LABS: Lactic Acid Reflex 1.4 mmol/L (0.7-2.1)
[2019-10-04 07:50] LABS: Alveolar/Arterial O2 Gradient 47.9 mmHg; Base Excess ABG 7.2 mEq/l (+/-2.0); Fractional Inspired Oxygen 21 %; HCO3 ABG 29.9 mEq/l (22.0-26.0); Oxygen Content ABG 13.1 %vol (16.0-22.0); Oxygen Saturation ABG 93.9 % (95.0-100.0); PO2 ABG 59.9 mmHg (80.0-100.0); PO2 FiO2 Ratio Arterial Blood 2.85 %; Total Hemoglobin 10.2 g/dL (12.0-18.0)
[2019-10-04 07:55] LABS: Device ROOM AIR; Modified Allen's Test Pass; Site Drawn RIGHT RADIAL; pH ABG 7.549 (7.350-7.450)
[2019-10-04] MEDS: METOPROLOL SUCCINATE EXT REL 100 MG TABCR 200 MG PO (08:15)
[2019-10-04] MEDS: DOXYCYCLINE HYCLATE 100 MG TABLET PO ×2 (08:16→20:16)
[2019-10-04] MEDS: SERTRALINE HCL 25 MG TABLET PO (08:17)
[2019-10-04] MEDS: DIGOXIN 250 MCG TABLET PO (08:17)
[2019-10-04] MEDS: CLOPIDOGREL BISULFATE 75 MG TABLET PO (08:17)
[2019-10-04] MEDS: ASPIRIN 81 MG ENTERIC TABLET PO (08:18)
[2019-10-04] MEDS: LACTATED RINGERS 1,000 ML 100 ML IV CONT ×2 (08:28→19:06)
--- NOTE | 2019-10-04 08:37 | P.PNIM_ITS ---
Progress Note: A&P Assessment and Plan (1) Metabolic acidosis: Code(s): E87.2 - Acidosis Status: Acute Assessment and Plan: * 10/04 new with anion gap * Suspect due to infection, perhaps aspiration * Concomitant respiratory alkalosis suggests aspiration with sepsis or PE (though latter would not account for anion gap) * 10/04 Blood C/s ordered, U/a reflex ordered * 10/04 CXR with persistent retrocardiac infiltrate * 10/04 Pulmonary CTA pending * 10/04 IV LR 100 ml/hr * Broaden antibiotic coverage with Vanc and Zosyn (2) Hyperkalemia: Code(s): E87.5 - Hyperkalemia Status: Acute Assessment and Plan: * Suspect due to metabolic acidosis and intra- to extracelluar shift * 10/04 bicarb iv * 10/04 f/u lab ordered (3) Atrial fibrillation with RVR: Code(s): I48.91 - Unspecified atrial fibrillation Status: Acute Assessment and Plan: * Continue PO Metoprolol succinate 100mg, Diltiazem CD 360mg daily * 10/02 added digoxin 250mcg daily * 10/02 to med tele * 10/02 enoxaparin d/c and on ASA 81mg daily due to fall risk * 10/03 additional digoxin and increased metoprolol this AM due to HR 110s to 130s, now improved * 10/04 HR control much better, 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 (4) Pneumonia: Qualifiers: Laterality: unspecified laterality Lung location: unspecified part of lung Pneumonia type: due to unspecified organism Qualified Code(s): J18.9 - Pneumonia, unspecified organism Code(s): J18.9 - Pneumonia, unspecified organism Status: Acute Assessment and Plan: * Patient received Levaquin emergency department * Transitioned to doxycycline and ceftriaxone * Day 5 antibiotics, 4 days doxy ceftriaxone, 10/04 day 1 vanc, zosyn, doxy (5) Anemia: Qualifiers: Anemia type: unspecified type Qualified Code(s): D64.9 - Anemia, unspecified Code(s): D64.9 - Anemia, unspecified Status: Acute Assessment and Plan: * Iron studies consistent with anemia of chronic disease * Continue to monitor H&H * Stool for occult blood (6) Closed fracture of left clavicle: Qualifiers: Clavicle location: unspecified part of clavicle Encounter type: sequela Fracture alignment: nondisplaced Qualified Code(s): S42.002S - Fracture of unspecified part of left clavicle, sequela Code(s): S42.002A - Fracture of unspecified part of left clavicle, initial encounter for closed fracture Status: Acute Assessment and Plan: * Age inderterminate * Conservative management * Morhpine prn for pain (7) Anxiety: Code(s): F41.9 - Anxiety disorder, unspecified Status: Acute Assessment and Plan: * 10/03 stop buspirone * 10/03 start sertraline and prn lorazepam * 10/03 prn morphine prn for pain (8) Sepsis: Qualifiers: Sepsis type: sepsis due to unspecified organism Sepsis acute organ dysfunction status: with acute organ dysfunction Severe sepsis acute organ dysfunction type: acute respiratory failure Acute respiratory failure type: with hypoxia Severe sepsis shock status: without septic shock Qualified Code(s): A41.9 - Sepsis, unspecified organism; R65.20 - Severe sepsis without septic shock; J96.01 - Acute respiratory failure with hypoxia Code(s): A41.9 - Sepsis, unspecified organism Status: Acute Assessment and Plan: * leukocytosis, tachycardia, metabolic acidosis, hypoxic respiratory failure Subjective Date/time seen: 10/04/19 08:37 Interval history: Georgette
--- NOTE | 2019-10-04 08:37 | PM.IMPN ---
Progress Note: A&P Assessment and Plan (1) Metabolic acidosis: Code(s): E87.2 - Acidosis Status: Acute Assessment and Plan: 10/04 new with anion gap Suspect due to infection, perhaps aspiration Concomitant respiratory alkalosis suggests aspiration with sepsis or PE (though latter would not account for anion gap) 10/04 Blood C/s ordered, U/a reflex ordered 10/04 CXR with persistent retrocardiac infiltrate 10/04 Pulmonary CTA pending 10/04 IV LR 100 ml/hr Broaden antibiotic coverage with Vanc and Zosyn (2) Hyperkalemia: Code(s): E87.5 - Hyperkalemia Status: Acute Assessment and Plan: Suspect due to metabolic acidosis and intra- to extracelluar shift 10/04 bicarb iv 10/04 f/u lab ordered (3) Atrial fibrillation with RVR: Code(s): I48.91 - Unspecified atrial fibrillation Status: Acute Assessment and Plan: Continue PO Metoprolol succinate 100mg, Diltiazem CD 360mg daily 10/02 added digoxin 250mcg daily 10/02 to med tele 10/02 enoxaparin d/c and on ASA 81mg daily due to fall risk 10/03 additional digoxin and increased metoprolol this AM due to HR 110s to 130s, now improved 10/04 HR control much better, 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 (4) Pneumonia: Qualifiers: Laterality: unspecified laterality Lung location: unspecified part of lung Pneumonia type: due to unspecified organism Qualified Code(s): J18.9 - Pneumonia, unspecified organism Code(s): J18.9 - Pneumonia, unspecified organism Status: Acute Assessment and Plan: Patient received [facility] emergency department Transitioned to doxycycline and ceftriaxone Day 5 antibiotics, 4 days doxy ceftriaxone, 10/04 day 1 vanc, zosyn, doxy (5) Anemia: Qualifiers: Anemia type: unspecified type Qualified Code(s): D64.9 - Anemia, unspecified Code(s): D64.9 - Anemia, unspecified Status: Acute Assessment and Plan: Iron studies consistent with anemia of chronic disease Continue to monitor H&H Stool for occult blood (6) Closed fracture of left clavicle: Qualifiers: Clavicle location: unspecified part of clavicle Encounter type: sequela Fracture alignment: nondisplaced Qualified Code(s): S42.002S - Fracture of unspecified part of left clavicle, sequela Code(s): S42.002A - Fracture of unspecified part of left clavicle, initial encounter for closed fracture Status: Acute Assessment and Plan: Age inderterminate Conservative management Morhpine prn for pain (7) Anxiety: Code(s): F41.9 - Anxiety disorder, unspecified Status: Acute Assessment and Plan: 10/03 stop buspirone 10/03 start sertraline and prn lorazepam 10/03 prn morphine prn for pain (8) Sepsis: Qualifiers: Sepsis type: sepsis due to unspecified organism Sepsis acute organ dysfunction status: with acute organ dysfunction Severe sepsis acute organ dysfunction type: acute respiratory failure Acute respiratory failure type: with hypoxia Severe sepsis shock status: without septic shock Qualified Code(s): A41.9 - Sepsis, unspecified organism; R65.20 - Severe sepsis without septic shock; J96.01 - Acute respiratory failure with hypoxia Code(s): A41.9 - Sepsis, unspecified organism Status: Acute Assessment and Plan: leukocytosis, tachycardia, metabolic acidosis, hypoxic respiratory failure Subjective Date/time seen: 10/04/19 08:37 Interval history: Agitated during night. Received seroquel and tramadol. Confused this AM. Review of Systems Review of Systems: ROS unobtainable: unobtainable due to mental status Exam Narrative: Exam Narrative: HEENT: EOMI, PERRL, pharyngeal mucosa pink and intact NECK: No JVD CHEST: Coarse breath sounds. Worse in LLs HEART: NL S1/S2, irregular ABDOMEN: BS+, soft, nontender, no mass, no bruits EXTREMITIES: No cyanosis, edema, or clubbing NEURO
--- NOTE | 2019-10-04 09:49 | PCPTNOTE ---
The PT treatment was unable to be completed this morning due to family refusal. Will continue per Plan of Care frequency and duration.
--- NOTE | 2019-10-04 11:43 | PC.NURSE ---
Informed Dr. Alston of CTA results positive for PE.
--- NOTE | 2019-10-04 13:14 | PCPTNOTE ---
The PT treatment was unable to be completed this afternoon due to family refusal. Will continue per Plan of Care frequency and duration.
[2019-10-04] MEDS: ENOXAPARIN 60 MG/0.6 ML SYRINGE SUB-Q (13:58)
--- NOTE | 2019-10-04 14:17 | PCOTNOTE ---
OT treatment unable to be completed at this time as patient going down for testing. Will plan to continue treatment per plan of care.
[2019-10-04 17:21] LABS: Add Urine Microscopic? YES; Appearance Urine Clear (Clear); Bacteria Urine Trace /hpf; Bilirubin Urine Negative (Negative); Blood Urine 2+ (Negative); Color Urine Yellow (Yellow); Glucose Urine UA Negative (Negative); Ketones Urine Negative (Negative); Leukocyte Esterase Ur Negative LEU/UL (Negative); Mucus Urine Rare /lpf; Nitrate Urine Negative (Negative); Protein Urine Negative (Negative); RBC Urine 51-75 /hpf (0-2); Urobilinogen Urine Negative mg/dL (<2.0); WBC Urine 0-3 /hpf
[2019-10-04 17:23] LABS: Specific Grav Ur 1.049 (1.001-1.035)
--- NOTE | 2019-10-04 19:03 | PC.NURSE ---
On 10/04/19, the license pending Registered Nurse, Mohit Garcia, provided care and completed [employer] documentation on this patient. I have reviewed the documentation and agree with the findings.
[2019-10-04] MEDS: SIMVASTATIN 20 MG TABLET PO (20:16)
--- NOTE | 2019-10-04 21:28 | ECG_ITS ---
Measurements Intervals [place] Rate: 98 P: [place]: 0 QRS: 73 QRSD: 91 T: -60 QT: 267 QTc: 342 Interpretive Statements ATRIAL FIBRILLATION NONSPECIFIC ST & T-WAVE ABNORMALITY- DIFFUSE LEADS BASELINE ARTIFACT- I, II, III, AVL, AVF ABNORMAL ECG Electronically Signed On 10-05-2019 6:46:52 SWEDGER by Tez Ramos D.O.
[2019-10-04] MEDS: QUEtiapine FUMARATE 12.5 MG TABLET PO (22:06)
[2019-10-05] VITALS (12 sets, daily range): BP systolic 102–132; BP diastolic 46–84; PULSE 62–111; RESP 18–20; TEMP 36.2–36.6; O2SAT 93–98; BMI 10.0
[2019-10-05] MEDS: ENOXAPARIN 60 MG/0.6 ML SYRINGE SUB-Q ×2 (00:03→12:06)
[2019-10-05] MEDS: LACTATED RINGERS 1,000 ML 100 ML IV CONT ×2 (05:51→15:53)
[2019-10-05 06:19] LABS: Basophils Absolute Auto 0.1 K/mm3 (0.0-0.1); Basophils Percent Auto 0.6 % (0.2-1.2); Eosinophils Percent Auto 0.2 % (0-4.4); Hematocrit 31.1 % (42.0-52.0); Hemoglobin 9.9 g/dL (14.0-18.0); Immature Granulocyte Absolute 0.34 K/mm3 (0.00-0.031); Immature Granulocyte Percent A 2.4 % (0-0.5); Lymphocytes Absolute Auto 1.37 K/mm3 (0.9-3.2); Lymphocytes Percent Auto 9.6 % (18.3-44.2); Mean Corpuscular HGB Conc 31.8 g/dl (32-36); Mean Corpuscular Hemoglobin 29.9 pg (26-34); Monocytes Absolute Auto 1.1 K/mm3 (0.1-0.6); Monocytes Percent Auto 7.4 % (2.6-8.5); Neutrophils Absolute Auto 11.5 K/mm3 (1.3-6.7); Neutrophils Percent Auto 79.8 % (45.5-73.1); Platelet Count Result 289 k/mm3 (150-375); Red Blood Count 3.31 M/mm3 (4.6-6.20); Red Cell Distribution Width 17.1 % (11.5-14.5); White Blood Count 14.3 K/mm3 (4.5-10.0)
[2019-10-05 06:31] LABS: Alanine Aminotransferase 37 U/L (4-50); Albumin Level 3.2 g/dL (3.5-5.1); Alkaline Phosphatase 136 U/L (38-126); Aspartate Amino Transferase 69 U/L (17-59); Bilirubin,Total 1.2 mg/dL (0.2-1.3); Blood Urea Nitrogen 27 mg/dL (9-20); Calcium 8.9 mg/dL (8.4-10.2); Carbon Dioxide 29 mmol/L (22-30); Chloride 102 mmol/L (98-107); Estimated CRCL calculation 38 ml/min; Estimated Glomerular Filt Rate > 60; Glucose 107 mg/dL (75-110); Potassium 3.7 mmol/L (3.4-5.0); Sodium 139 mmol/L (137-145)
[2019-10-05] MEDS: SERTRALINE HCL 25 MG TABLET PO (09:13)
[2019-10-05] MEDS: METOPROLOL SUCCINATE EXT REL 100 MG TABCR 200 MG PO (09:13)
[2019-10-05] MEDS: DIGOXIN 250 MCG TABLET PO (09:14)
[2019-10-05] MEDS: CLOPIDOGREL BISULFATE 75 MG TABLET PO (09:14)
[2019-10-05] MEDS: ASPIRIN 81 MG ENTERIC TABLET PO (09:14)
[2019-10-05] MEDS: DOXYCYCLINE HYCLATE 100 MG TABLET PO ×2 (09:14→20:54)
--- NOTE | 2019-10-05 14:02 | P.PNIM_ITS ---
Progress Note: A&P Assessment and Plan (1) Metabolic acidosis: Code(s): E87.2 - Acidosis Status: Acute Assessment and Plan: * 10/04 new with anion gap * Suspect due to infection, perhaps aspiration * Concomitant respiratory alkalosis suggests aspiration with sepsis or PE (though latter would not account for anion gap) * 10/04 Blood C/s ordered, U/a reflex ordered * 10/04 CXR with persistent retrocardiac infiltrate * 10/04 Pulmonary CTA pending * 10/04 IV LR 100 ml/hr * Broadened antibiotic coverage with Vanc and Zosyn (2) Atrial fibrillation with RVR: Code(s): I48.91 - Unspecified atrial fibrillation Status: Acute Assessment and Plan: * Continue PO Metoprolol succinate 100mg, Diltiazem CD 360mg daily * 10/02 added digoxin 250mcg daily * 10/02 to med tele * 10/02 enoxaparin d/c and on ASA 81mg daily due to fall risk * 10/03 additional digoxin and increased metoprolol this AM due to HR 110s to 130s, now improved * 10/04 HR control much better, 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 (3) Pneumonia: Qualifiers: Laterality: unspecified laterality Lung location: unspecified part of lung Pneumonia type: due to unspecified organism Qualified Code(s): J18.9 - Pneumonia, unspecified organism Code(s): J18.9 - Pneumonia, unspecified organism Status: Acute Assessment and Plan: * Patient received [facility] emergency department * Transitioned to doxycycline and ceftriaxone * Day 6 antibiotics, 5 days doxy ceftriaxone, 10/04 day 1 vanc, zosyn, doxy (4) Anemia: Qualifiers: Anemia type: unspecified type Qualified Code(s): D64.9 - Anemia, unspecified Code(s): D64.9 - Anemia, unspecified Status: Acute Assessment and Plan: * Iron studies consistent with anemia of chronic disease * Continue to monitor H&H * Stool for occult blood (5) Closed fracture of left clavicle: Qualifiers: Clavicle location: unspecified part of clavicle Encounter type: sequela Fracture alignment: nondisplaced Qualified Code(s): S42.002S - Fracture of unspecified part of left clavicle, sequela Code(s): S42.002A - Fracture of unspecified part of left clavicle, initial encounter for closed fracture Status: Acute Assessment and Plan: * Age inderterminate * Conservative management * Morhpine prn for pain (6) Anxiety: Code(s): F41.9 - Anxiety disorder, unspecified Status: Acute Assessment and Plan: * 10/03 stop buspirone * 10/03 started sertraline and prn lorazepam * 10/03 prn morphine prn for pain (7) Sepsis: Qualifiers: Sepsis type: sepsis due to unspecified organism Sepsis acute organ dysfunction status: with acute organ dysfunction Severe sepsis acute organ dysfunction type: acute respiratory failure Acute respiratory failure type: with hypoxia Severe sepsis shock status: without septic shock Qualified Code(s): A41.9 - Sepsis, unspecified organism; R65.20 - Severe sepsis without septic shock; J96.01 - Acute respiratory failure with hypoxia Code(s): A41.9 - Sepsis, unspecified organism Status: Acute Assessment and Plan: * leukocytosis, tachycardia, metabolic acidosis, hypoxic respiratory failure Subjective Date/time seen: 10/05/19 14:02 Interval history: Date of visit 10/05. 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 Agitated during night. Received seroquel and tramadol. Marked lucid this a.m. though still confused Exam
--- NOTE | 2019-10-05 14:02 | PM.IMPN ---
Progress Note: A&P Assessment and Plan (1) Metabolic acidosis: Code(s): E87.2 - Acidosis Status: Acute Assessment and Plan: 10/04 new with anion gap Suspect due to infection, perhaps aspiration Concomitant respiratory alkalosis suggests aspiration with sepsis or PE (though latter would not account for anion gap) 10/04 Blood C/s ordered, U/a reflex ordered 10/04 CXR with persistent retrocardiac infiltrate 10/04 Pulmonary CTA pending 10/04 IV LR 100 ml/hr Broadened antibiotic coverage with Vanc and Zosyn (2) Atrial fibrillation with RVR: Code(s): I48.91 - Unspecified atrial fibrillation Status: Acute Assessment and Plan: Continue PO Metoprolol succinate 100mg, Diltiazem CD 360mg daily 10/02 added digoxin 250mcg daily 10/02 to med tele 10/02 enoxaparin d/c and on ASA 81mg daily due to fall risk 10/03 additional digoxin and increased metoprolol this AM due to HR 110s to 130s, now improved 10/04 HR control much better, 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 (3) Pneumonia: Qualifiers: Laterality: unspecified laterality Lung location: unspecified part of lung Pneumonia type: due to unspecified organism Qualified Code(s): J18.9 - Pneumonia, unspecified organism Code(s): J18.9 - Pneumonia, unspecified organism Status: Acute Assessment and Plan: Patient received [facility] emergency department Transitioned to doxycycline and ceftriaxone Day 6 antibiotics, 5 days doxy ceftriaxone, 10/04 day 1 vanc, zosyn, doxy (4) Anemia: Qualifiers: Anemia type: unspecified type Qualified Code(s): D64.9 - Anemia, unspecified Code(s): D64.9 - Anemia, unspecified Status: Acute Assessment and Plan: Iron studies consistent with anemia of chronic disease Continue to monitor H&H Stool for occult blood (5) Closed fracture of left clavicle: Qualifiers: Clavicle location: unspecified part of clavicle Encounter type: sequela Fracture alignment: nondisplaced Qualified Code(s): S42.002S - Fracture of unspecified part of left clavicle, sequela Code(s): S42.002A - Fracture of unspecified part of left clavicle, initial encounter for closed fracture Status: Acute Assessment and Plan: Age inderterminate Conservative management Morhpine prn for pain (6) Anxiety: Code(s): F41.9 - Anxiety disorder, unspecified Status: Acute Assessment and Plan: 10/03 stop buspirone 10/03 started sertraline and prn lorazepam 10/03 prn morphine prn for pain (7) Sepsis: Qualifiers: Sepsis type: sepsis due to unspecified organism Sepsis acute organ dysfunction status: with acute organ dysfunction Severe sepsis acute organ dysfunction type: acute respiratory failure Acute respiratory failure type: with hypoxia Severe sepsis shock status: without septic shock Qualified Code(s): A41.9 - Sepsis, unspecified organism; R65.20 - Severe sepsis without septic shock; J96.01 - Acute respiratory failure with hypoxia Code(s): A41.9 - Sepsis, unspecified organism Status: Acute Assessment and Plan: leukocytosis, tachycardia, metabolic acidosis, hypoxic respiratory failure Subjective Date/time seen: 10/05/19 14:02 Interval history: Date of visit 10/05. 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 Agitated during night. Received seroquel and tramadol. Marked lucid this a.m. though still confused Exam Narrative: Exam Narrative: Blood pressure 124/68 pulse is 104 afebrile HEENT: EOMI, PERRL, NECK: No JVD neck is supple CHEST: Coarse breath sounds. Worse in LLs with crackles HEART: NL S1/S2, irregular ABDOMEN: BS+, soft, nontender, no mass, no bruits EXTREMITIES: No cyanosis Objective Data Vital Signs Vital Signs: Vital Signs - 24 hr 10/04/19 16:00 10/04/19 18:00 10/04/19 20:00 Temperature 36.6 C Pulse Rate 88
[2019-10-05] MEDS: ACETAMINOPHEN 325 MG TABLET 650 MG PO (20:46)
[2019-10-05] MEDS: SIMVASTATIN 20 MG TABLET PO (20:53)
[2019-10-05] MEDS: QUEtiapine FUMARATE 12.5 MG TABLET PO (20:53)
[2019-10-06] VITALS (11 sets, daily range): BP systolic 128–146; BP diastolic 62–92; PULSE 77–90; RESP 16–22; TEMP 36.3–36.8; O2SAT 93–98
[2019-10-06] MEDS: LORAZEPAM INJ 2 MG/ML VIAL 0.5 MG IV PUSH (01:09)
[2019-10-06] MEDS: ENOXAPARIN 60 MG/0.6 ML SYRINGE SUB-Q ×2 (01:53→12:27)
[2019-10-06] MEDS: LACTATED RINGERS 1,000 ML 100 ML IV CONT (05:18)
[2019-10-06 05:27] LABS: Basophils Absolute Auto 0.1 K/mm3 (0.0-0.1); Basophils Percent Auto 0.6 % (0.2-1.2); Eosinophils Absolute Auto 0.1 K/mm3 (0-0.3); Eosinophils Percent Auto 0.5 % (0-4.4); Hematocrit 28.1 % (42.0-52.0); Hemoglobin 8.8 g/dL (14.0-18.0); Immature Granulocyte Absolute 0.22 K/mm3 (0.00-0.031); Immature Granulocyte Percent A 1.8 % (0-0.5); Lymphocytes Absolute Auto 1.29 K/mm3 (0.9-3.2); Lymphocytes Percent Auto 10.5 % (18.3-44.2); Mean Corpuscular HGB Conc 31.3 g/dl (32-36); Mean Corpuscular Hemoglobin 29.1 pg (26-34); Mean Platelet Volume 10.9 fl (7.4-10.4); Monocytes Absolute Auto 1.1 K/mm3 (0.1-0.6); Monocytes Percent Auto 9.3 % (2.6-8.5); Neutrophils Absolute Auto 9.5 K/mm3 (1.3-6.7); Neutrophils Percent Auto 77.3 % (45.5-73.1); Platelet Count Result 272 k/mm3 (150-375); Red Blood Count 3.02 M/mm3 (4.6-6.20); Red Cell Distribution Width 16.8 % (11.5-14.5); White Blood Count 12.3 K/mm3 (4.5-10.0)
[2019-10-06 05:41] LABS: Alanine Aminotransferase 36 U/L (4-50); Albumin Level 2.8 g/dL (3.5-5.1); Alkaline Phosphatase 117 U/L (38-126); Aspartate Amino Transferase 51 U/L (17-59); Bilirubin,Total 0.9 mg/dL (0.2-1.3); Blood Urea Nitrogen 25 mg/dL (9-20); Calcium 8.7 mg/dL (8.4-10.2); Carbon Dioxide 27 mmol/L (22-30); Chloride 103 mmol/L (98-107); Estimated CRCL calculation 38 ml/min; Estimated Glomerular Filt Rate > 60; Glucose 96 mg/dL (75-110); Magnesium 1.8 mg/dL (1.6-2.3); Potassium 3.4 mmol/L (3.4-5.0); Sodium 137 mmol/L (137-145)
[2019-10-06] MEDS: METOPROLOL SUCCINATE EXT REL 100 MG TABCR 200 MG PO (08:14)
[2019-10-06] MEDS: SERTRALINE HCL 25 MG TABLET PO (08:14)
[2019-10-06] MEDS: ASPIRIN 81 MG ENTERIC TABLET PO (08:15)
[2019-10-06] MEDS: DOXYCYCLINE HYCLATE 100 MG TABLET PO ×2 (08:15→21:21)
[2019-10-06] MEDS: CLOPIDOGREL BISULFATE 75 MG TABLET PO (08:15)
[2019-10-06] MEDS: DIGOXIN 250 MCG TABLET PO (08:15)
--- NOTE | 2019-10-06 11:42 | PCNFU ---
Nutrition Follow-Up Complete: Predicted suboptimal oral intake related to decreased appetite as evidenced by reported decreased appetite and variable intake thus far. Patient to consume 75% of meals or greater Goal: progressing towards goal. Pt current nutrition is 2 gm Na. Nutrition recommendation: Agree Last recorded weight is 59.6 kg down from 65 kg on admit. Bowel Motility:+BM reported 10/03 Labs Reviewed:BUN 25, Alb 2.8 Meds Noted:Vanc, Seroquil Additional Notes: Patient confused today. He needs assist with meals. Intake has been about 50% of meals. MD orders for Ensure Compact BID for an additional 220 kcals and 10 gms proteins. Plans for SNF when discharging. Monitoring: Follow up in 5 days.
--- NOTE | 2019-10-06 11:58 | P.PNIM_ITS ---
Progress Note: A&P Assessment and Plan (1) Metabolic acidosis: Code(s): E87.2 - Acidosis Status: Acute Assessment and Plan: * 10/04 new with anion gap * Suspect due to infection, perhaps aspiration * Concomitant respiratory alkalosis suggests aspiration with sepsis or PE (though latter would not account for anion gap) * 10/04 Blood C/s ordered, U/a reflex ordered * 10/04 CXR with persistent retrocardiac infiltrate * 10/04 Pulmonary CTA ,RRR emboli * 10/04 IV LR 100 ml/hr and now back to 50 ml * Broadened antibiotic coverage with Vanc and Zosyn D # 3 * recheck cxr am (2) Atrial fibrillation with RVR: Code(s): I48.91 - Unspecified atrial fibrillation Status: Acute Assessment and Plan: * Continue PO Metoprolol succinate 100mg, Diltiazem CD 360mg daily * 10/02 added digoxin 250mcg daily * 10/02 enoxaparin d/c and on ASA 81mg daily due to fall risk * 10/03 additional digoxin and increased metoprolol this AM due to HR 110s to 130s, now improved * 10/04 HR control much better, 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 (3) Pneumonia: Qualifiers: Laterality: unspecified laterality Lung location: unspecified part of lung Pneumonia type: due to unspecified organism Qualified Code(s): J18.9 - Pneumonia, unspecified organism Code(s): J18.9 - Pneumonia, unspecified organism Status: Acute Assessment and Plan: * Patient received [facility] emergency department * Transitioned to doxycycline and ceftriaxone * Day 7 antibiotics, D#3 vanc, zosyn,( started 11/01) doxy (4) Anemia: Qualifiers: Anemia type: unspecified type Qualified Code(s): D64.9 - Anemia, unspecified Code(s): D64.9 - Anemia, unspecified Status: Acute Assessment and Plan: * Iron studies consistent with anemia of chronic disease * Continue to monitor H&H * Stool for occult blood (5) Closed fracture of left clavicle: Qualifiers: Clavicle location: unspecified part of clavicle Encounter type: sequela Fracture alignment: nondisplaced Qualified Code(s): S42.002S - Fracture of unspecified part of left clavicle, sequela Code(s): S42.002A - Fracture of unspecified part of left clavicle, initial encounter for closed fracture Status: Acute Assessment and Plan: * Age inderterminate * Conservative management * Morhpine prn for pain (6) Anxiety: Code(s): F41.9 - Anxiety disorder, unspecified Status: Acute Assessment and Plan: * 10/03 stop buspirone * 10/03 started sertraline and prn lorazepam * 10/03 prn morphine prn for pain (7) Sepsis: Qualifiers: Sepsis type: sepsis due to unspecified organism Sepsis acute organ dysfunction status: with acute organ dysfunction Severe sepsis acute organ dysfunction type: acute respiratory failure Acute respiratory failure type: wi th hypoxia Severe sepsis shock status: without septic shock Qualified Code(s): A41.9 - Sepsis, unspecified organism; R65.20 - Severe sepsis without septic shock; J96.01 - Acute respiratory failure with hypoxia Code(s): A41.9 - Sepsis, unspecified organism Status: Acute Assessment and Plan: * leukocytosis, tachycardia, metabolic acidosis, hypoxic respiratory failure * resolved Subjective Date/time seen: 10/06/19 11:58 Interval history: Date of visit 10/06. 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 Agitated during night. Received seroquel and tramadol. More lucid this a.m. though still confused CT
--- NOTE | 2019-10-06 11:58 | PM.IMPN ---
Progress Note: A&P Assessment and Plan (1) Metabolic acidosis: Code(s): E87.2 - Acidosis Status: Acute Assessment and Plan: 10/04 new with anion gap Suspect due to infection, perhaps aspiration Concomitant respiratory alkalosis suggests aspiration with sepsis or PE (though latter would not account for anion gap) 10/04 Blood C/s ordered, U/a reflex ordered 10/04 CXR with persistent retrocardiac infiltrate 10/04 Pulmonary CTA ,RRR emboli 10/04 IV LR 100 ml/hr and now back to 50 ml Broadened antibiotic coverage with Vanc and Zosyn D # 3 recheck cxr am (2) Atrial fibrillation with RVR: Code(s): I48.91 - Unspecified atrial fibrillation Status: Acute Assessment and Plan: Continue PO Metoprolol succinate 100mg, Diltiazem CD 360mg daily 10/02 added digoxin 250mcg daily 10/02 enoxaparin d/c and on ASA 81mg daily due to fall risk 10/03 additional digoxin and increased metoprolol this AM due to HR 110s to 130s, now improved 10/04 HR control much better, 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 (3) Pneumonia: Qualifiers: Laterality: unspecified laterality Lung location: unspecified part of lung Pneumonia type: due to unspecified organism Qualified Code(s): J18.9 - Pneumonia, unspecified organism Code(s): J18.9 - Pneumonia, unspecified organism Status: Acute Assessment and Plan: Patient received [facility] emergency department Transitioned to doxycycline and ceftriaxone Day 7 antibiotics, D#3 vanc, zosyn,( started 11/01) doxy (4) Anemia: Qualifiers: Anemia type: unspecified type Qualified Code(s): D64.9 - Anemia, unspecified Code(s): D64.9 - Anemia, unspecified Status: Acute Assessment and Plan: Iron studies consistent with anemia of chronic disease Continue to monitor H&H Stool for occult blood (5) Closed fracture of left clavicle: Qualifiers: Clavicle location: unspecified part of clavicle Encounter type: sequela Fracture alignment: nondisplaced Qualified Code(s): S42.002S - Fracture of unspecified part of left clavicle, sequela Code(s): S42.002A - Fracture of unspecified part of left clavicle, initial encounter for closed fracture Status: Acute Assessment and Plan: Age inderterminate Conservative management Morhpine prn for pain (6) Anxiety: Code(s): F41.9 - Anxiety disorder, unspecified Status: Acute Assessment and Plan: 10/03 stop buspirone 10/03 started sertraline and prn lorazepam 10/03 prn morphine prn for pain (7) Sepsis: Qualifiers: Sepsis type: sepsis due to unspecified organism Sepsis acute organ dysfunction status: with acute organ dysfunction Severe sepsis acute organ dysfunction type: acute respiratory failure Acute respiratory failure type: with hypoxia Severe sepsis shock status: without septic shock Qualified Code(s): A41.9 - Sepsis, unspecified organism; R65.20 - Severe sepsis without septic shock; J96.01 - Acute respiratory failure with hypoxia Code(s): A41.9 - Sepsis, unspecified organism Status: Acute Assessment and Plan: leukocytosis, tachycardia, metabolic acidosis, hypoxic respiratory failure resolved Subjective Date/time seen: 10/06/19 11:58 Interval history: Date of visit 10/06. 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 Agitated during night. Received seroquel and tramadol. More lucid this a.m. though still confused CT emboli with pna Exam Narrative: Exam Narrative: Blood pressure 146/62 pulse is 90 , sat 94 RA afebrile HEENT: EOMI, PERRL, NECK: No JVD neck is supple CHEST: Coarse breath sounds. Worse in LLs with crackles HEART: NL S1/S2, irregular ABDOMEN: BS+, soft, nontender, no mass, no bruits EXTREMITIES: No cyanosis and no edema neuro still confused Objective Data Vital Signs Vital Signs: Vital Signs - 24
[2019-10-06] MEDS: LACTATED RINGERS 1,000 ML 50 ML IV CONT ×2 (12:26→17:53)
[2019-10-06] MEDS: POTASSIUM CHLORIDE 20 MEQ TABLET 40 MEQ PO (12:33)
[2019-10-06] MEDS: ACETAMINOPHEN 325 MG TABLET 650 MG PO (17:50)
[2019-10-06] MEDS: SIMVASTATIN 20 MG TABLET PO (21:21)
[2019-10-06] MEDS: QUEtiapine FUMARATE 12.5 MG TABLET PO (21:21)
[2019-10-07] VITALS (12 sets, daily range): BP systolic 118–141; BP diastolic 62–83; PULSE 62–114; RESP 18–20; TEMP 36.2–36.6; O2SAT 91–98
[2019-10-07] MEDS: ENOXAPARIN 60 MG/0.6 ML SYRINGE SUB-Q ×2 (02:40→13:41)
[2019-10-07 08:21] LABS: Basophils Absolute Auto 0.1 K/mm3 (0.0-0.1); Basophils Percent Auto 0.4 % (0.2-1.2); Eosinophils Percent Auto 0.2 % (0-4.4); Hematocrit 29.3 % (42.0-52.0); Hemoglobin 9.4 g/dL (14.0-18.0); Immature Granulocyte Absolute 0.27 K/mm3 (0.00-0.031); Lymphocytes Absolute Auto 1.28 K/mm3 (0.9-3.2); Lymphocytes Percent Auto 9.7 % (18.3-44.2); Mean Corpuscular HGB Conc 32.1 g/dl (32-36); Mean Corpuscular Hemoglobin 29.6 pg (26-34); Mean Corpuscular Volume 92.1 fl (80-100); Mean Platelet Volume 10.8 fl (7.4-10.4); Monocytes Absolute Auto 0.9 K/mm3 (0.1-0.6); Monocytes Percent Auto 6.8 % (2.6-8.5); Neutrophils Absolute Auto 10.7 K/mm3 (1.3-6.7); Neutrophils Percent Auto 80.9 % (45.5-73.1); Platelet Count Result 286 k/mm3 (150-375); Red Blood Count 3.18 M/mm3 (4.6-6.20); Red Cell Distribution Width 17.2 % (11.5-14.5); White Blood Count 13.3 K/mm3 (4.5-10.0)
[2019-10-07 08:35] LABS: Blood Urea Nitrogen 22 mg/dL (9-20); Calcium 8.4 mg/dL (8.4-10.2); Carbon Dioxide 23 mmol/L (22-30); Chloride 103 mmol/L (98-107); Estimated CRCL calculation 38 ml/min; Estimated Glomerular Filt Rate > 60; Glucose 123 mg/dL (75-110); Potassium 3.6 mmol/L (3.4-5.0); Sodium 137 mmol/L (137-145)
[2019-10-07] MEDS: ASPIRIN 81 MG ENTERIC TABLET PO (08:36)
[2019-10-07] MEDS: CLOPIDOGREL BISULFATE 75 MG TABLET PO (08:37)
[2019-10-07] MEDS: SERTRALINE HCL 25 MG TABLET PO (08:38)
[2019-10-07] MEDS: DIGOXIN 250 MCG TABLET PO (08:38)
[2019-10-07] MEDS: METOPROLOL SUCCINATE EXT REL 100 MG TABCR 200 MG PO (08:38)
[2019-10-07] MEDS: DOXYCYCLINE HYCLATE 100 MG TABLET PO ×2 (08:38→20:48)
[2019-10-07 09:11] LABS: Vancomycin Trough 5.5 ug/mL (10.0-20.0)
[2019-10-07 10:40] LABS: IFOB Positive Control Positive; Immunochemical Fecal Occult Bl Negative (N)
--- NOTE | 2019-10-07 11:13 | PC.NURSE ---
Attempted to call Dr. Escobedo and notifiy him of possible vtach on the quality assurance monitor body. At this time I left a voicemail and notified him of the situation. Will attempt to call again if there is no response.
[2019-10-07] MEDS: POTASSIUM CHLORIDE 20 MEQ TABLET 40 MEQ PO (13:39)
--- NOTE | 2019-10-07 15:55 | P.PNIM_ITS ---
Progress Note: A&P Assessment and Plan (1) Metabolic acidosis: Code(s): E87.2 - Acidosis Status: Acute Assessment and Plan: * 2 new with anion gap * Suspect due to infection, perhaps aspiration * Concomitant respiratory alkalosis suggests aspiration with sepsis or PE (though latter would not account for anion gap) * 10/04 Blood C/s neg, U/a reflex neg * 10/04 CXR with persistent retrocardiac infiltrate * 10/04 Pulmonary CTA ,RRR emboli * Broadened antibiotic coverage with Vanc and Zosyn D # 4 * repeat cxr better R but worsened Left infiltrate (2) Atrial fibrillation with RVR: Code(s): I48.91 - Unspecified atrial fibrillation Status: Acute Assessment and Plan: * Continue PO Metoprolol succinate 100mg, Diltiazem CD 360mg daily * 10/02 enoxaparin d/c and on ASA 81mg daily due to fall risk * 10/04 HR control much better, 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 * as above and will d/c lanoxin with lower pulse rate (3) Pneumonia: Qualifiers: Laterality: unspecified laterality Lung location: unspecified part of lung Pneumonia type: due to unspecified organism Qualified Code(s): J18.9 - Pneumonia, unspecified organism Code(s): J18.9 - Pneumonia, unspecified organism Status: Acute Assessment and Plan: * Patient received [facility] emergency department * Transitioned to doxycycline and ceftriaxone * Day 8 antibiotics, D#4 vanc, zosyn,( started 11/01) doxy (4) Anemia: Qualifiers: Anemia type: unspecified type Qualified Code(s): D64.9 - Anemia, unspecified Code(s): D64.9 - Anemia, unspecified Status: Acute Assessment and Plan: * Iron studies consistent with anemia of chronic disease * Continue to monitor H&H * Stool for occult blood (5) Closed fracture of left clavicle: Qualifiers: Clavicle location: unspecified part of clavicle Encounter type: sequela Fracture alignment: nondisplaced Qualified Code(s): S42.002S - Fracture of unspecified part of left clavicle, sequela Code(s): S42.002A - Fracture of unspecified part of left clavicle, initial encounter for closed fracture Status: Acute Assessment and Plan: * Age inderterminate * Conservative management * Morhpine prn for pain (6) Anxiety: Code(s): F41.9 - Anxiety disorder, unspecified Status: Acute Assessment and Plan: * 10/03 stop buspirone and lorazepam * hs low dose seroquil at 12.5 * 10/03 prn morphine prn for pain (7) Sepsis: Qualifiers: Sepsis type: sepsis due to unspecified organism Sepsis acute organ dysfunction status: with acute organ dysfunction Severe sepsis acute organ dysfunction type: acute respiratory failure Acute respiratory failure type: with hypoxia Severe sepsis shock status: without septic shock Qualified Code(s): A41.9 - Sepsis, unspecified organism; R65.20 - Severe sepsis without septic shock; J96.01 - Acute respiratory failure with hypoxia Code(s): A41.9 - Sepsis, unspecified organism Status: Acute Assessment and Plan: * leukocytosis, tachycardia, metabolic acidosis, hypoxic respiratory failure, secondary to PNA * resolved Subjective Date/time seen: 10/07/19 15:55 Interval history: Date of visit 10/07. 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 Agitated less last night. Received seroquel and tramadol. More lucid this a.m. CT chest emboli with pna on admission and recieving rx Exam Narrative: Exam N
--- NOTE | 2019-10-07 15:55 | PM.IMPN ---
Progress Note: A&P Assessment and Plan (1) Metabolic acidosis: Code(s): E87.2 - Acidosis Status: Acute Assessment and Plan: 10/04 new with anion gap Suspect due to infection, perhaps aspiration Concomitant respiratory alkalosis suggests aspiration with sepsis or PE (though latter would not account for anion gap) 10/04 Blood C/s neg, U/a reflex neg 10/04 CXR with persistent retrocardiac infiltrate 10/04 Pulmonary CTA ,RRR emboli Broadened antibiotic coverage with Vanc and Zosyn D # 4 repeat cxr better R but worsened Left infiltrate (2) Atrial fibrillation with RVR: Code(s): I48.91 - Unspecified atrial fibrillation Status: Acute Assessment and Plan: Continue PO Metoprolol succinate 100mg, Diltiazem CD 360mg daily 10/02 enoxaparin d/c and on ASA 81mg daily due to fall risk 10/04 HR control much better, 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 as above and will d/c lanoxin with lower pulse rate (3) Pneumonia: Qualifiers: Laterality: unspecified laterality Lung location: unspecified part of lung Pneumonia type: due to unspecified organism Qualified Code(s): J18.9 - Pneumonia, unspecified organism Code(s): J18.9 - Pneumonia, unspecified organism Status: Acute Assessment and Plan: Patient received [facility] emergency department Transitioned to doxycycline and ceftriaxone Day 8 antibiotics, D#4 vanc, zosyn,( started 11/01) doxy (4) Anemia: Qualifiers: Anemia type: unspecified type Qualified Code(s): D64.9 - Anemia, unspecified Code(s): D64.9 - Anemia, unspecified Status: Acute Assessment and Plan: Iron studies consistent with anemia of chronic disease Continue to monitor H&H Stool for occult blood (5) Closed fracture of left clavicle: Qualifiers: Clavicle location: unspecified part of clavicle Encounter type: sequela Fracture alignment: nondisplaced Qualified Code(s): S42.002S - Fracture of unspecified part of left clavicle, sequela Code(s): S42.002A - Fracture of unspecified part of left clavicle, initial encounter for closed fracture Status: Acute Assessment and Plan: Age inderterminate Conservative management Morhpine prn for pain (6) Anxiety: Code(s): F41.9 - Anxiety disorder, unspecified Status: Acute Assessment and Plan: 10/03 stop buspirone and lorazepam hs low dose seroquil at 12.5 10/03 prn morphine prn for pain (7) Sepsis: Qualifiers: Sepsis type: sepsis due to unspecified organism Sepsis acute organ dysfunction status: with acute organ dysfunction Severe sepsis acute organ dysfunction type: acute respiratory failure Acute respiratory failure type: with hypoxia Severe sepsis shock status: without septic shock Qualified Code(s): A41.9 - Sepsis, unspecified organism; R65.20 - Severe sepsis without septic shock; J96.01 - Acute respiratory failure with hypoxia Code(s): A41.9 - Sepsis, unspecified organism Status: Acute Assessment and Plan: leukocytosis, tachycardia, metabolic acidosis, hypoxic respiratory failure, secondary to PNA resolved Subjective Date/time seen: 10/07/19 15:55 Interval history: Date of visit 10/07. 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 Agitated less last night. Received seroquel and tramadol. More lucid this a.m. CT chest emboli with pna on admission and recieving rx Exam Narrative: Exam Narrative: Blood pressure 130/62 pulse is 66 , sat 94 RA afebrile HEENT: EOMI, PERRL, NECK: No JVD neck is supple CHEST: Coarse breath sounds. but hear no crackles today HEART: NL S1/S2, irregular ABDOMEN: BS+, soft, nontender, no mass, no bruits EXTREMITIES: No cyanosis and no edema neuro old focal deficets, less confused Objective Data Vital Signs Vital Signs: Vital Signs - 24 hr 10/06/19 16:00 10/06/19 20:00 02
[2019-10-07] MEDS: QUEtiapine FUMARATE 12.5 MG TABLET PO (20:48)
[2019-10-07] MEDS: ACETAMINOPHEN 325 MG TABLET 650 MG PO (20:48)
[2019-10-07] MEDS: SIMVASTATIN 20 MG TABLET PO (20:48)
[2019-10-08] VITALS (7 sets, daily range): BP systolic 98–179; BP diastolic 67–84; PULSE 63–105; RESP 16–18; TEMP 36.2–36.6; O2SAT 96–99
[2019-10-08] MEDS: ENOXAPARIN 60 MG/0.6 ML SYRINGE SUB-Q ×2 (00:13→12:05)
[2019-10-08 05:35] LABS: Basophils Absolute Auto 0.1 K/mm3 (0.0-0.1); Basophils Percent Auto 0.5 % (0.2-1.2); Eosinophils Absolute Auto 0.1 K/mm3 (0-0.3); Eosinophils Percent Auto 0.4 % (0-4.4); Hematocrit 28.7 % (42.0-52.0); Hemoglobin 9.3 g/dL (14.0-18.0); Immature Granulocyte Absolute 0.22 K/mm3 (0.00-0.031); Immature Granulocyte Percent A 1.8 % (0-0.5); Lymphocytes Absolute Auto 1.78 K/mm3 (0.9-3.2); Lymphocytes Percent Auto 14.2 % (18.3-44.2); Mean Corpuscular HGB Conc 32.4 g/dl (32-36); Mean Corpuscular Hemoglobin 30.2 pg (26-34); Mean Corpuscular Volume 93.2 fl (80-100); Mean Platelet Volume 11.4 fl (7.4-10.4); Monocytes Percent Auto 8.2 % (2.6-8.5); Neutrophils Absolute Auto 9.4 K/mm3 (1.3-6.7); Neutrophils Percent Auto 74.9 % (45.5-73.1); Platelet Count Result 268 k/mm3 (150-375); Red Blood Count 3.08 M/mm3 (4.6-6.20); Red Cell Distribution Width 17.3 % (11.5-14.5); White Blood Count 12.5 K/mm3 (4.5-10.0)
[2019-10-08 05:43] LABS: Blood Urea Nitrogen 21 mg/dL (9-20); Calcium 8.7 mg/dL (8.4-10.2); Carbon Dioxide 24 mmol/L (22-30); Chloride 105 mmol/L (98-107); Estimated CRCL calculation 42 ml/min; Estimated Glomerular Filt Rate > 60; Glucose 89 mg/dL (75-110); Potassium 3.8 mmol/L (3.4-5.0); Sodium 137 mmol/L (137-145)
[2019-10-08] MEDS: DOXYCYCLINE HYCLATE 100 MG TABLET PO ×2 (08:31→21:43)
[2019-10-08] MEDS: ASPIRIN 81 MG ENTERIC TABLET PO (08:31)
[2019-10-08] MEDS: CLOPIDOGREL BISULFATE 75 MG TABLET PO (08:31)
--- NOTE | 2019-10-08 08:31 | PCPTNOTE ---
Attempted therapy session, Pt was eating. Will attempt again.
[2019-10-08] MEDS: POTASSIUM CHLORIDE 20 MEQ TABLET.ER PO (08:32)
[2019-10-08] MEDS: METOPROLOL SUCCINATE EXT REL 100 MG TABCR 200 MG PO (08:32)
[2019-10-08] MEDS: ACETAMINOPHEN 325 MG TABLET 650 MG PO ×2 (08:35→14:37)
--- NOTE | 2019-10-08 12:18 | P.PNIM_ITS ---
Progress Note: A&P Assessment and Plan (1) Metabolic acidosis: Code(s): E87.2 - Acidosis Status: Acute Assessment and Plan: * 10/04 new with anion gap * Suspect due to infection, perhaps aspiration * Concomitant respiratory alkalosis suggests aspiration with sepsis or PE (though latter would not account for anion gap) * 10/04 Blood C/s neg, U/a reflex neg * 10/04 CXR with persistent retrocardiac infiltrate and no improvement on xr 10/07 * 10/04 Pulmonary CTA ,RRR emboli * Broadened antibiotic coverage with Vanc and Zosyn D # 5 * repeat cxr 10/07 better R, but worsened Left infiltrate (2) Atrial fibrillation with RVR: Code(s): I48.91 - Unspecified atrial fibrillation Status: Acute Assessment and Plan: * Continue PO Metoprolol succinate 100mg, Diltiazem CD 360mg daily * 10/02 enoxaparin d/c due to fall risk but restarted 10/04 with PE * 10/04 HR control much better, actually 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 * as above and will d/c lanoxin with lower pulse rate (3) Pneumonia: Qualifiers: Laterality: unspecified laterality Lung location: unspecified part of lung Pneumonia type: due to unspecified organism Qualified Code(s): J18.9 - Pneumonia, unspecified organism Code(s): J18.9 - Pneumonia, unspecified organism Status: Acute Assessment and Plan: * Patient received Levaquin emergency department * Transitioned to doxycycline and ceftriaxone * Day 9 antibiotics, D#5 vanc, zosyn,( started 11/01) doxy (4) Anemia: Qualifiers: Anemia type: unspecified type Qualified Code(s): D64.9 - Anemia, unspecified Code(s): D64.9 - Anemia, unspecified Status: Acute Assessment and Plan: * Iron studies consistent with anemia of chronic disease * Continue to monitor H&H * Stool for occult blood (5) Closed fracture of left clavicle: Qualifiers: Clavicle location: unspecified part of clavicle Encounter type: sequela Fracture alignment: nondisplaced Qualified Code(s): S42.002S - Fracture of unspecified part of left clavicle, sequela Code(s): S42.002A - Fracture of unspecified part of left clavicle, initial encounter for closed fracture Status: Acute Assessment and Plan: * Age inderterminate * Conservative management * Morhpine prn for pain (6) Anxiety: Code(s): F41.9 - Anxiety disorder, unspecified Status: Acute Assessment and Plan: * 10/03 stop buspirone and lorazepam * hs low dose seroquil at 12.5 * 10/03 prn morphine prn for pain (7) Sepsis: Qualifiers: Sepsis type: sepsis due to unspecified organism Sepsis acute organ dysfunction status: with acute organ dysfunction Severe sepsis acute organ dysfunction type: acute respiratory failure Acute respiratory failure type: with hypoxia Severe sepsis shock status: without septic shock Qualified Code(s): A41.9 - Sepsis, unspecified organism; R65.20 - Severe sepsis without septic shock; J96.01 - Acute respiratory failure with hypoxia Code(s): A41.9 - Sepsis, unspecified organism Status: Acute Assessment and Plan: * leukocytosis, tachycardia, metabolic acidosis, hypoxic respiratory failure, secondary to PNA * resolved (8) Pulmonary emboli: Code(s): I26.99 - Other pulmonary embolism without acute cor pulmonale Status: Acute Assessment and Plan: RLL segmental PE on CTA 10/04 will continue lovenox q12 and transition to Xa inhibitor at d/c probable xarelto just 20 qd because will have had 1 full week of lovenox and l
--- NOTE | 2019-10-08 12:18 | PM.IMPN ---
Progress Note: A&P Assessment and Plan (1) Metabolic acidosis: Code(s): E87.2 - Acidosis Status: Acute Assessment and Plan: 10/04 new with anion gap Suspect due to infection, perhaps aspiration Concomitant respiratory alkalosis suggests aspiration with sepsis or PE (though latter would not account for anion gap) 10/04 Blood C/s neg, U/a reflex neg 10/04 CXR with persistent retrocardiac infiltrate and no improvement on xr 10/07 10/04 Pulmonary CTA ,RRR emboli Broadened antibiotic coverage with Vanc and Zosyn D # 5 repeat cxr 10/07 better R, but worsened Left infiltrate (2) Atrial fibrillation with RVR: Code(s): I48.91 - Unspecified atrial fibrillation Status: Acute Assessment and Plan: Continue PO Metoprolol succinate 100mg, Diltiazem CD 360mg daily 10/02 enoxaparin d/c due to fall risk but restarted 10/04 with PE 10/04 HR control much better, actually 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 as above and will d/c lanoxin with lower pulse rate (3) Pneumonia: Qualifiers: Laterality: unspecified laterality Lung location: unspecified part of lung Pneumonia type: due to unspecified organism Qualified Code(s): J18.9 - Pneumonia, unspecified organism Code(s): J18.9 - Pneumonia, unspecified organism Status: Acute Assessment and Plan: Patient received Levaquin emergency department Transitioned to doxycycline and ceftriaxone Day 9 antibiotics, D#5 vanc, zosyn,( started 11/01) doxy (4) Anemia: Qualifiers: Anemia type: unspecified type Qualified Code(s): D64.9 - Anemia, unspecified Code(s): D64.9 - Anemia, unspecified Status: Acute Assessment and Plan: Iron studies consistent with anemia of chronic disease Continue to monitor H&H Stool for occult blood (5) Closed fracture of left clavicle: Qualifiers: Clavicle location: unspecified part of clavicle Encounter type: sequela Fracture alignment: nondisplaced Qualified Code(s): S42.002S - Fracture of unspecified part of left clavicle, sequela Code(s): S42.002A - Fracture of unspecified part of left clavicle, initial encounter for closed fracture Status: Acute Assessment and Plan: Age inderterminate Conservative management Morhpine prn for pain (6) Anxiety: Code(s): F41.9 - Anxiety disorder, unspecified Status: Acute Assessment and Plan: 10/03 stop buspirone and lorazepam hs low dose seroquil at 12.5 10/03 prn morphine prn for pain (7) Sepsis: Qualifiers: Sepsis type: sepsis due to unspecified organism Sepsis acute organ dysfunction status: with acute organ dysfunction Severe sepsis acute organ dysfunction type: acute respiratory failure Acute respiratory failure type: with hypoxia Severe sepsis shock status: without septic shock Qualified Code(s): A41.9 - Sepsis, unspecified organism; R65.20 - Severe sepsis without septic shock; J96.01 - Acute respiratory failure with hypoxia Code(s): A41.9 - Sepsis, unspecified organism Status: Acute Assessment and Plan: leukocytosis, tachycardia, metabolic acidosis, hypoxic respiratory failure, secondary to PNA resolved (8) Pulmonary emboli: Code(s): I26.99 - Other pulmonary embolism without acute cor pulmonale Status: Acute Assessment and Plan: RLL segmental PE on CTA 10/04 will continue lovenox q12 and transition to Xa inhibitor at d/c probable xarelto just 20 qd because will have had 1 full week of lovenox and low clot burden Subjective Date/time seen: 10/08/19 12:18 Interval history: Date of visit 10/08. 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 Agitated less each night. Received seroquel and tramadol. More lucid again this a.m. CT chest emboli with pna on admission and recieving rx Exam Narrative: Exam Narrative: Blood pressure 130/80 pulse is 90 irregular
[2019-10-08] MEDS: QUEtiapine FUMARATE 12.5 MG TABLET PO (21:43)
[2019-10-08] MEDS: SIMVASTATIN 20 MG TABLET PO (21:43)
[2019-10-09] VITALS (7 sets, daily range): BP systolic 99–126; BP diastolic 61–89; PULSE 66–116; RESP 16–20; TEMP 36.2–36.8; O2SAT 95–98; BMI 10.0
[2019-10-09] MEDS: ENOXAPARIN 60 MG/0.6 ML SYRINGE SUB-Q ×2 (00:39→13:15)
[2019-10-09] MEDS: ACETAMINOPHEN 325 MG TABLET 650 MG PO (01:01)
[2019-10-09] MEDS: ASPIRIN 81 MG ENTERIC TABLET PO (09:12)
[2019-10-09] MEDS: POTASSIUM CHLORIDE 20 MEQ TABLET.ER PO (09:12)
[2019-10-09] MEDS: CLOPIDOGREL BISULFATE 75 MG TABLET PO (09:13)
[2019-10-09] MEDS: DOXYCYCLINE HYCLATE 100 MG TABLET PO ×2 (09:13→21:26)
[2019-10-09] MEDS: METOPROLOL SUCCINATE EXT REL 100 MG TABCR 200 MG PO (09:13)
--- NOTE | 2019-10-09 10:47 | P.PNIM_ITS ---
Progress Note: A&P Assessment and Plan (1) Metabolic acidosis: Code(s): E87.2 - Acidosis Status: Acute Assessment and Plan: * 10/04 new with anion gap * Suspect due to infection, perhaps aspiration * Concomitant respiratory alkalosis suggests aspiration with sepsis or PE (though latter would not account for anion gap) * 10/04 Blood C/s neg, U/a reflex neg * 10/04 CXR with persistent retrocardiac infiltrate and no improvement on xr 10/07 * 10/04 Pulmonary CTA ,RRR emboli * Broadened antibiotic coverage with Vanc and Zosyn D # 6 * repeat cxr 10/07 better R, but worsened Left infiltrate * continues to improve clinically and will recheck wbc 10/09 (2) Atrial fibrillation with RVR: Code(s): I48.91 - Unspecified atrial fibrillation Status: Acute Assessment and Plan: * Continue PO Metoprolol succinate 100mg, Diltiazem CD 360mg daily * 10/02 enoxaparin d/c due to fall risk but restarted 10/04 with PE * 10/04 HR control much better, 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 * as above and l d/claudia lanoxin with lower pulse rate (3) Pneumonia: Qualifiers: Laterality: unspecified laterality Lung location: unspecified part of lung Pneumonia type: due to unspecified organism Qualified Code(s): J18.9 - Pneumonia, unspecified organism Code(s): J18.9 - Pneumonia, unspecified organism Status: Acute Assessment and Plan: * Patient received Levaquin emergency department * Transitioned to doxycycline and ceftriaxone * Day 10 antibiotics, D#6 vanc, zosyn,( started 11/01) doxy (4) Anemia: Qualifiers: Anemia type: unspecified type Qualified Code(s): D64.9 - Anemia, unspecified Code(s): D64.9 - Anemia, unspecified Status: Acute Assessment and Plan: * Iron studies consistent with anemia of chronic disease * Continue to monitor H&H * Stool for occult blood (5) Closed fracture of left clavicle: Qualifiers: Clavicle location: unspecified part of clavicle Encounter type: sequela Fracture alignment: nondisplaced Qualified Code(s): S42.002S - Fracture of unspecified part of left clavicle, sequela Code(s): S42.002A - Fracture of unspecified part of left clavicle, initial encounter for closed fracture Status: Acute Assessment and Plan: * Age inderterminate * Conservative management * Morhpine prn for pain (6) Anxiety: Code(s): F41.9 - Anxiety disorder, unspecified Status: Acute Assessment and Plan: * 10/03 stop buspirone and lorazepam * hs low dose seroquil at 12.5mg (7) Sepsis: Qualifiers: Sepsis type: sepsis due to unspecified organism Sepsis acute organ dysfunction status: with acute organ dysfunction Severe sepsis acute organ dysfunction type: acute respiratory failure Acute respiratory failure type: with hypoxia Severe sepsis shock status: without septic shock Qualified Code(s): A41.9 - Sepsis, unspecified organism; R65.20 - Severe sepsis without septic shock; J96.01 - Acute respiratory failure with hypoxia Code(s): A41.9 - Sepsis, unspecified organism Status: Acute Assessment and Plan: * leukocytosis, tachycardia, metabolic acidosis, hypoxic respiratory failure, secondary to PNA * resolved (8) Pulmonary emboli: Code(s): I26.99 - Other pulmonary embolism without acute cor pulmonale Status: Acute Assessment and Plan: RLL segmental PE on CTA 10/04 will continue lovenox q12 and transition to Xa inhibitor at d/c probable xarelto just 20 qd because will have had 1 f
--- NOTE | 2019-10-09 10:47 | PM.IMPN ---
Progress Note: A&P Assessment and Plan (1) Metabolic acidosis: Code(s): E87.2 - Acidosis Status: Acute Assessment and Plan: 10/04 new with anion gap Suspect due to infection, perhaps aspiration Concomitant respiratory alkalosis suggests aspiration with sepsis or PE (though latter would not account for anion gap) 10/04 Blood C/s neg, U/a reflex neg 10/04 CXR with persistent retrocardiac infiltrate and no improvement on xr 10/07 10/04 Pulmonary CTA ,RRR emboli Broadened antibiotic coverage with Vanc and Zosyn D # 6 repeat cxr 10/07 better R, but worsened Left infiltrate continues to improve clinically and will recheck wbc 10/09 (2) Atrial fibrillation with RVR: Code(s): I48.91 - Unspecified atrial fibrillation Status: Acute Assessment and Plan: Continue PO Metoprolol succinate 100mg, Diltiazem CD 360mg daily 10/02 enoxaparin d/c due to fall risk but restarted 10/04 with PE 10/04 HR control much better, actually 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 as above and l d/claudia lanoxin with lower pulse rate (3) Pneumonia: Qualifiers: Laterality: unspecified laterality Lung location: unspecified part of lung Pneumonia type: due to unspecified organism Qualified Code(s): J18.9 - Pneumonia, unspecified organism Code(s): J18.9 - Pneumonia, unspecified organism Status: Acute Assessment and Plan: Patient received Levaquin emergency department Transitioned to doxycycline and ceftriaxone Day 10 antibiotics, D#6 vanc, zosyn,( started 11/01) doxy (4) Anemia: Qualifiers: Anemia type: unspecified type Qualified Code(s): D64.9 - Anemia, unspecified Code(s): D64.9 - Anemia, unspecified Status: Acute Assessment and Plan: Iron studies consistent with anemia of chronic disease Continue to monitor H&H Stool for occult blood (5) Closed fracture of left clavicle: Qualifiers: Clavicle location: unspecified part of clavicle Encounter type: sequela Fracture alignment: nondisplaced Qualified Code(s): S42.002S - Fracture of unspecified part of left clavicle, sequela Code(s): S42.002A - Fracture of unspecified part of left clavicle, initial encounter for closed fracture Status: Acute Assessment and Plan: Age inderterminate Conservative management Morhpine prn for pain (6) Anxiety: Code(s): F41.9 - Anxiety disorder, unspecified Status: Acute Assessment and Plan: 10/03 stop buspirone and lorazepam hs low dose seroquil at 12.5mg (7) Sepsis: Qualifiers: Sepsis type: sepsis due to unspecified organism Sepsis acute organ dysfunction status: with acute organ dysfunction Severe sepsis acute organ dysfunction type: acute respiratory failure Acute respiratory failure type: with hypoxia Severe sepsis shock status: without septic shock Qualified Code(s): A41.9 - Sepsis, unspecified organism; R65.20 - Severe sepsis without septic shock; J96.01 - Acute respiratory failure with hypoxia Code(s): A41.9 - Sepsis, unspecified organism Status: Acute Assessment and Plan: leukocytosis, tachycardia, metabolic acidosis, hypoxic respiratory failure, secondary to PNA resolved (8) Pulmonary emboli: Code(s): I26.99 - Other pulmonary embolism without acute cor pulmonale Status: Acute Assessment and Plan: RLL segmental PE on CTA 10/04 will continue lovenox q12 and transition to Xa inhibitor at d/c probable xarelto just 20 qd because will have had 1 full week of lovenox and low clot burden Subjective Date/time seen: 10/09/19 10:47 Interval history: Date of visit . 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 Agitated less each night. Received seroquel and tramadol. More lucid each am. CT chest emboli with pna on admission and recieving rx Exam Narrative: Exam Narrative: Blood pressure 118/86
--- NOTE | 2019-10-09 12:04 | PCPTNOTE ---
Attempted Stand Step Pivot transfer from EOB to [facility]. During first attempt Pt started yelling Whoa, Whoa, Whoa, Hold On, No! Therapist sat Pt back down onto EOB. Pt looked at therapist and explained, You need to listen to me! Therapist calmly replied to Pt I am, we are sitting back on the bed. Let's just rest for a minute. Pt explained I want my to come help me! Held one of Pts hands while therapist using proper body mechanics assisted Pt to standing. Once standing Pt became rigid, extending all appendages and flinging his body backwards towards the bed. Pt exhibited severe posterior lean. Pt started yelling Whoa, Whoa, Whoa, I'm Falling, No, No, Stop, Let go of me! Therapist sat Pt back partially onto EOB and therapist's knee. FARM TECHNICIAN came into assist Therapist with getting the Pt fully into bed. Therapist firmly explained, Hilton, you need to stop. We are getting you back in bed but you need to stop throwing yourself backwards and listen to me. I need to to lean forward so we can scoot you back onto the bed and then lay you into the bed. Pt stopped yelling and listened to therapist. Therapist with assist from FARM TECHNICIAN was able to safely get Pt fully into bed.
[2019-10-09] MEDS: SIMVASTATIN 20 MG TABLET PO (21:26)
[2019-10-09] MEDS: QUEtiapine FUMARATE 12.5 MG TABLET PO (21:26)
[2019-10-10] VITALS (7 sets, daily range): BP systolic 106–153; BP diastolic 56–77; PULSE 62–97; RESP 18–22; TEMP 36.2–36.9; O2SAT 95–97; BMI 11.0
[2019-10-10] MEDS: ENOXAPARIN 60 MG/0.6 ML SYRINGE SUB-Q ×2 (00:52→15:08)
[2019-10-10 07:59] LABS: Basophils Absolute Auto 0.1 K/mm3 (0.0-0.1); Basophils Percent Auto 0.4 % (0.2-1.2); Eosinophils Percent Auto 0.3 % (0-4.4); Hemoglobin 9.9 g/dL (14.0-18.0); Immature Granulocyte Absolute 0.23 K/mm3 (0.00-0.031); Immature Granulocyte Percent A 1.5 % (0-0.5); Lymphocytes Absolute Auto 2.55 K/mm3 (0.9-3.2); Lymphocytes Percent Auto 16.4 % (18.3-44.2); Mean Corpuscular HGB Conc 31.9 g/dl (32-36); Mean Corpuscular Hemoglobin 29.6 pg (26-34); Mean Corpuscular Volume 92.8 fl (80-100); Mean Platelet Volume 11.2 fl (7.4-10.4); Monocytes Absolute Auto 1.4 K/mm3 (0.1-0.6); Monocytes Percent Auto 9.3 % (2.6-8.5); Neutrophils Absolute Auto 11.2 K/mm3 (1.3-6.7); Neutrophils Percent Auto 72.1 % (45.5-73.1); Platelet Count Result 295 k/mm3 (150-375); Red Blood Count 3.34 M/mm3 (4.6-6.20); Red Cell Distribution Width 18.1 % (11.5-14.5); White Blood Count 15.6 K/mm3 (4.5-10.0)
[2019-10-10 08:11] LABS: Blood Urea Nitrogen 23 mg/dL (9-20); Calcium 8.5 mg/dL (8.4-10.2); Carbon Dioxide 25 mmol/L (22-30); Chloride 104 mmol/L (98-107); Estimated CRCL calculation 42 ml/min; Estimated Glomerular Filt Rate > 60; Glucose 95 mg/dL (75-110); Potassium 3.7 mmol/L (3.4-5.0); Sodium 134 mmol/L (137-145)
[2019-10-10] MEDS: POTASSIUM CHLORIDE 20 MEQ TABLET.ER PO (08:48)
[2019-10-10] MEDS: METOPROLOL SUCCINATE EXT REL 100 MG TABCR 200 MG PO (08:48)
[2019-10-10] MEDS: ASPIRIN 81 MG ENTERIC TABLET PO (08:48)
[2019-10-10] MEDS: CLOPIDOGREL BISULFATE 75 MG TABLET PO (08:48)
[2019-10-10] MEDS: DOXYCYCLINE HYCLATE 100 MG TABLET PO ×2 (08:49→20:58)
[2019-10-10 09:00] LABS: Vancomycin Trough 8.3 ug/mL (10.0-20.0)
--- NOTE | 2019-10-10 11:47 | P.PNIM_ITS ---
Progress Note: A&P Assessment and Plan (1) Metabolic acidosis: Code(s): E87.2 - Acidosis Status: Acute Assessment and Plan: * 10/04 new with anion gap * Suspect due to infection, perhaps aspiration * Concomitant respiratory alkalosis suggests aspiration with sepsis or PE (though latter would not account for anion gap) * 10/04 Blood C/s neg, U/a reflex neg * 10/04 CXR with persistent retrocardiac infiltrate and no improvement on xr 10/07 * 10/04 Pulmonary CTA ,RRR emboli * Broadened antibiotic coverage with Vanc and Zosyn D # 7 * repeat cxr 10/07 better R, but worsened Left infiltrate * continues to improve clinically even though wbc stays elevated., d/c antibiotics 10/10 at discharge (2) Atrial fibrillation with RVR: Code(s): I48.91 - Unspecified atrial fibrillation Status: Acute Assessment and Plan: * Continue PO Metoprolol succinate 100mg, Diltiazem CD 360mg daily * 10/02 enoxaparin d/c due to fall risk but restarted 10/04 with PE * 10/04 HR control much better, actually 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 * as above and l d/claudia lanoxin with lower pulse rate (3) Pneumonia: Qualifiers: Laterality: unspecified laterality Lung location: unspecified part of lung Pneumonia type: due to unspecified organism Qualified Code(s): J18.9 - Pneumonia, unspecified organism Code(s): J18.9 - Pneumonia, unspecified organism Status: Acute Assessment and Plan: * [facility] * Transitioned to doxycycline and ceftriaxone * Day 11 antibiotics, D#7 vanc, zosyn,( started 11/01) doxy (4) Anemia: Qualifiers: Anemia type: unspecified type Qualified Code(s): D64.9 - Anemia, unspecified Code(s): D64.9 - Anemia, unspecified Status: Acute Assessment and Plan: * Iron studies consistent with anemia of chronic disease * Continue to monitor H&H, stable hgb 9.9 (5) Closed fracture of left clavicle: Qualifiers: Clavicle location: unspecified part of clavicle Encounter type: sequela Fracture alignment: nondisplaced Qualified Code(s): S42.002S - Fracture of unspecified part of left clavicle, sequela Code(s): S42.002A - Fracture of unspecified part of left clavicle, initial encounter for closed fracture Status: Acute Assessment and Plan: * Age inderterminate * Conservative management * Morhpine prn for pain (6) Anxiety: Code(s): F41.9 - Anxiety disorder, unspecified Status: Acute Assessment and Plan: * 10/03 stop buspirone and lorazepam * hs low dose seroquil increased to 25 mg (7) Sepsis: Qualifiers: Sepsis type: sepsis due to unspecified organism Sepsis acute organ dysfunction status: with acute organ dysfunction Severe sepsis acute organ dysfunction type: acute respiratory failure Acute respiratory failure type: with hypoxia Severe sepsis shock status: without septic shock Qualified Code(s): A41.9 - Sepsis, unspecified organism; R65.20 - Severe sepsis without septic shock; J96.01 - Acute respiratory failure with hypoxia Code(s): A41.9 - Sepsis, unspecified organism Status: Acute Assessment and Plan: * leukocytosis, tachycardia, metabolic acidosis, hypoxic respiratory failure, secondary to PNA * resolved (8) Pulmonary emboli: Code(s): I26.99 - Other pulmonary embolism without acute cor pulmonale Status: Acute Assessment and Plan: RLL segmental PE on CTA 10/04 will continue lovenox q12 and transition to Xa inhibitor at d/c probab
--- NOTE | 2019-10-10 11:47 | PM.IMPN ---
Progress Note: A&P Assessment and Plan (1) Metabolic acidosis: Code(s): E87.2 - Acidosis Status: Acute Assessment and Plan: 10/04 new with anion gap Suspect due to infection, perhaps aspiration Concomitant respiratory alkalosis suggests aspiration with sepsis or PE (though latter would not account for anion gap) 10/04 Blood C/s neg, U/a reflex neg 10/04 CXR with persistent retrocardiac infiltrate and no improvement on xr 10/07 10/04 Pulmonary CTA ,RRR emboli Broadened antibiotic coverage with Vanc and Zosyn D # 7 repeat cxr 10/07 better R, but worsened Left infiltrate continues to improve clinically even though wbc stays elevated., d/c antibiotics 10/10 at discharge (2) Atrial fibrillation with RVR: Code(s): I48.91 - Unspecified atrial fibrillation Status: Acute Assessment and Plan: Continue PO Metoprolol succinate 100mg, Diltiazem CD 360mg daily 10/02 enoxaparin d/c due to fall risk but restarted 10/04 with PE 10/04 HR control much better, actually 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 as above and l d/claudia lanoxin with lower pulse rate (3) Pneumonia: Qualifiers: Laterality: unspecified laterality Lung location: unspecified part of lung Pneumonia type: due to unspecified organism Qualified Code(s): J18.9 - Pneumonia, unspecified organism Code(s): J18.9 - Pneumonia, unspecified organism Status: Acute Assessment and Plan: Patient received Levaquin emergency department Transitioned to doxycycline and ceftriaxone Day 11 antibiotics, D#7 vanc, zosyn,( started 11/01) doxy (4) Anemia: Qualifiers: Anemia type: unspecified type Qualified Code(s): D64.9 - Anemia, unspecified Code(s): D64.9 - Anemia, unspecified Status: Acute Assessment and Plan: Iron studies consistent with anemia of chronic disease Continue to monitor H&H, stable hgb 9.9 (5) Closed fracture of left clavicle: Qualifiers: Clavicle location: unspecified part of clavicle Encounter type: sequela Fracture alignment: nondisplaced Qualified Code(s): S42.002S - Fracture of unspecified part of left clavicle, sequela Code(s): S42.002A - Fracture of unspecified part of left clavicle, initial encounter for closed fracture Status: Acute Assessment and Plan: Age inderterminate Conservative management Morhpine prn for pain (6) Anxiety: Code(s): F41.9 - Anxiety disorder, unspecified Status: Acute Assessment and Plan: 10/03 stop buspirone and lorazepam hs low dose seroquil increased to 25 mg (7) Sepsis: Qualifiers: Sepsis type: sepsis due to unspecified organism Sepsis acute organ dysfunction status: with acute organ dysfunction Severe sepsis acute organ dysfunction type: acute respiratory failure Acute respiratory failure type: with hypoxia Severe sepsis shock status: without septic shock Qualified Code(s): A41.9 - Sepsis, unspecified organism; R65.20 - Severe sepsis without septic shock; J96.01 - Acute respiratory failure with hypoxia Code(s): A41.9 - Sepsis, unspecified organism Status: Acute Assessment and Plan: leukocytosis, tachycardia, metabolic acidosis, hypoxic respiratory failure, secondary to PNA resolved (8) Pulmonary emboli: Code(s): I26.99 - Other pulmonary embolism without acute cor pulmonale Status: Acute Assessment and Plan: RLL segmental PE on CTA 10/04 will continue lovenox q12 and transition to Xa inhibitor at d/c probable xarelto just 20 qd because will have had 1 full week of lovenox and low clot burden Subjective Date/time seen: 10/10/19 11:47 Interval history: Date of visit 10/09. 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 Agitated less each night. Received seroquel and tramadol. More lucid each am. CT chest emboli with pna on admission and recieving rx Exam Narrative:
[2019-10-10] MEDS: ACETAMINOPHEN 325 MG TABLET 650 MG PO (11:55)
[2019-10-10] MEDS: SIMVASTATIN 20 MG TABLET PO (20:58)
[2019-10-10] MEDS: QUEtiapine FUMARATE 12.5 MG TABLET PO (20:58)
[2019-10-11] MEDS: ENOXAPARIN 60 MG/0.6 ML SYRINGE SUB-Q ×2 (00:15→12:21)
[2019-10-11 02:23] VITALS: BP 153/77; PULSE 76; RESP 24; TEMP 36.3; O2SAT 95
[2019-10-11 05:53] LABS: Estimated CRCL calculation 42 ml/min; Estimated Glomerular Filt Rate > 60
[2019-10-11 07:25] VITALS: BP 115/75; PULSE 78; RESP 20; TEMP 36.6; O2SAT 96
[2019-10-11] MEDS: POTASSIUM CHLORIDE 20 MEQ TABLET.ER PO (08:00)
[2019-10-11 08:01] VITALS: PULSE 68
[2019-10-11] MEDS: ASPIRIN 81 MG ENTERIC TABLET PO (08:01)
[2019-10-11] MEDS: METOPROLOL SUCCINATE EXT REL 100 MG TABCR 200 MG PO (08:01)
[2019-10-11] MEDS: CLOPIDOGREL BISULFATE 75 MG TABLET PO (08:03)
[2019-10-11] MEDS: DOXYCYCLINE HYCLATE 100 MG TABLET PO (08:03)
[2019-10-11] MEDS: ACETAMINOPHEN 325 MG TABLET 650 MG PO (11:35)
[2019-10-11 12:55] VITALS: BMI 10.0
--- NOTE | 2019-10-12 08:39 | P.DS_ITS ---
DS: Diagnosis Admitting Diagnosis Admitting Diagnosis: Unspecified atrial fibrillation Discharge Diagnosis (1) Metabolic acidosis: Code(s): E87.2 - Acidosis Status: Acute Assessment and Plan: * 10/04 new with anion gap * Suspect due to infection, perhaps aspiration * Concomitant respiratory alkalosis suggests aspiration with sepsis or PE (though latter would not account for anion gap) * 10/04 Blood C/s neg, U/a reflex neg * 10/04 CXR with persistent retrocardiac infiltrate and no improvement on xr 10/07 * 10/04 Pulmonary CTA ,RRR emboli * Broadened antibiotic coverage with Vanc and Zosyn D # 7 finished * repeat cxr 10/07 better R, but worsened Left infiltrate * continues to improve clinically even though wbc stays elevated., d/claudia antibiotics 10/10 at discharge (2) Atrial fibrillation with RVR: Code(s): I48.91 - Unspecified atrial fibrillation Status: Acute Assessment and Plan: * Continue PO Metoprolol succinate 100mg, Diltiazem CD 360mg daily well controlled V response at d/c * 10/02 enoxaparin d/c due to fall risk but restarted 10/04 with PE * 10/04 HR control much better, actually 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 * as above and d/claudia lanoxin with lower pulse rate (3) Pneumonia: Qualifiers: Laterality: unspecified laterality Lung location: unspecified part of lung Pneumonia type: due to unspecified organism Qualified Code(s): J18.9 - Pneumonia, unspecified organism Code(s): J18.9 - Pneumonia, unspecified organism Status: Acute Assessment and Plan: * Patient received Leva[facility] emergency department * Transitioned to doxycycline and ceftriaxone * Day 11 antibiotics, D#7 vanc, zosyn,( started 11/01) doxy and d/claudia at discharge (4) Anemia: Qualifiers: Anemia type: unspecified type Qualified Code(s): D64.9 - Anemia, unsp ecified Code(s): D64.9 - Anemia, unspecified Status: Acute Assessment and Plan: * Iron studies consistent with anemia of chronic disease * Continue to monitor H&H, stable hgb 9.9 at discharge (5) Closed fracture of left clavicle: Qualifiers: Clavicle location: unspecified part of clavicle Encounter type: sequela Fracture alignment: nondisplaced Qualified Code(s): S42.002S - Fracture of unspecified part of left clavicle, sequela Code(s): S42.002A - Fracture of unspecified part of left clavicle, initial encounter for closed fracture Status: Acute Assessment and Plan: * Age inderterminate * Conservative management * Morhpine prn for pain (6) Anxiety: Code(s): F41.9 - Anxiety disorder, unspecified Status: Acute Assessment and Plan: * 10/03 stop lorazepam * hs low dose seroquil increased to 25 mg (7) Sepsis: Qualifiers: Sepsis type: sepsis due to unspecified organism Sepsis acute organ dysfunction status: with acute organ dysfunction Severe sepsis acute organ dysfunction type: acute respiratory failure Acute respiratory failure type: with hypoxia Severe sepsis shock status: without septic shock Qualified Code(s): A41.9 - Sepsis, unspecified organism; R65.20 - Severe sepsis without septic shock; J96.01 - Acute respiratory failure with hypoxia Code(s): A41.9 - Sepsis, unspecified organism Status: Acute Assessment and Plan: * leukocytosis, tachycardia, metabolic acidosis, hypoxic respiratory failure, secondary to PNA * resolved, still some leukocytosis at d/c with no active infection (8) Pulmonary emboli: Code(s): I26.99 -
--- NOTE | 2019-10-12 08:39 | PM.DS ---
DS: Diagnosis Admitting Diagnosis Admitting Diagnosis: Unspecified atrial fibrillation Discharge Diagnosis (1) Metabolic acidosis: Code(s): E87.2 - Acidosis Status: Acute Assessment and Plan: 10/04 new with anion gap Suspect due to infection, perhaps aspiration Concomitant respiratory alkalosis suggests aspiration with sepsis or PE (though latter would not account for anion gap) 10/04 Blood C/s neg, U/a reflex neg 10/04 CXR with persistent retrocardiac infiltrate and no improvement on xr 10/07 10/04 Pulmonary CTA ,RRR emboli Broadened antibiotic coverage with Vanc and Zosyn D # 7 finished repeat cxr 10/07 better R, but worsened Left infiltrate continues to improve clinically even though wbc stays elevated., d/claudia antibiotics 10/10 at discharge (2) Atrial fibrillation with RVR: Code(s): I48.91 - Unspecified atrial fibrillation Status: Acute Assessment and Plan: Continue PO Metoprolol succinate 100mg, Diltiazem CD 360mg daily well controlled V response at d/c 10/02 enoxaparin d/c due to fall risk but restarted 10/04 with PE 10/04 HR control much better, 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 as above and d/claudia lanoxin with lower pulse rate (3) Pneumonia: Qualifiers: Laterality: unspecified laterality Lung location: unspecified part of lung Pneumonia type: due to unspecified organism Qualified Code(s): J18.9 - Pneumonia, unspecified organism Code(s): J18.9 - Pneumonia, unspecified organism Status: Acute Assessment and Plan: Patient received [facility] emergency department Transitioned to doxycycline and ceftriaxone Day 11 antibiotics, D#7 vanc, zosyn,( started 11/01) doxy and d/claudia at discharge (4) Anemia: Qualifiers: Anemia type: unspecified type Qualified Code(s): D64.9 - Anemia, unspecified Code(s): D64.9 - Anemia, unspecified Status: Acute Assessment and Plan: Iron studies consistent with anemia of chronic disease Continue to monitor H&H, stable hgb 9.9 at discharge (5) Closed fracture of left clavicle: Qualifiers: Clavicle location: unspecified part of clavicle Encounter type: sequela Fracture alignment: nondisplaced Qualified Code(s): S42.002S - Fracture of unspecified part of left clavicle, sequela Code(s): S42.002A - Fracture of unspecified part of left clavicle, initial encounter for closed fracture Status: Acute Assessment and Plan: Age inderterminate Conservative management Morhpine prn for pain (6) Anxiety: Code(s): F41.9 - Anxiety disorder, unspecified Status: Acute Assessment and Plan: 10/03 stop lorazepam hs low dose seroquil increased to 25 mg (7) Sepsis: Qualifiers: Sepsis type: sepsis due to unspecified organism Sepsis acute organ dysfunction status: with acute organ dysfunction Severe sepsis acute organ dysfunction type: acute respiratory failure Acute respiratory failure type: with hypoxia Severe sepsis shock status: without septic shock Qualified Code(s): A41.9 - Sepsis, unspecified organism; R65.20 - Severe sepsis without septic shock; J96.01 - Acute respiratory failure with hypoxia Code(s): A41.9 - Sepsis, unspecified organism Status: Acute Assessment and Plan: leukocytosis, tachycardia, metabolic acidosis, hypoxic respiratory failure, secondary to PNA resolved, still some leukocytosis at d/c with no active infection (8) Pulmonary emboli: Code(s): I26.99 - Other pulmonary embolism without acute cor pulmonale Status: Acute Assessment and Plan: RLL segmental PE on CTA 10/04 will continue lovenox q12 and transitioned to Xa inhibitor at d/c, xarelto just 20 qd without 15 mg bid because had 1 full week of lovenox and low clot burden stopped plavix and asa with increase bleeding risk DS: Summary Hospital Course Hospital Course: 84-year-old white male with p
== END 2019-10-11 15:55 | DRG 193 ==
LOC: ANHED 16:33 → ANHICU 10-01 00:28 → ANH2MED 10-04 12:17 → ANHICU 10-14 14:31 → ANHIMU 10-14 14:31
PROVIDERS: Emergency Medicine; Internal Medicine; Admitting Provider Internal Medicine; Emergency Provider Emergency Medicine; Visit Provider Internal Medicine
DX: J18.9 Pneumonia, unspecified organism (principal); G93.41 Metabolic encephalopathy; A41.9 Sepsis, unspecified organism; R65.20 Severe sepsis without septic shock; J96.01 Acute respiratory failure with hypoxia; I26.99 Other pulmonary embolism without acute cor pulmonale; I69.354 Hemiplegia and hemiparesis following cerebral infarction affecting left non-dominant side; E87.2 Acidosis; E87.3 Alkalosis; I48.91 Unspecified atrial fibrillation; S42.002A Fracture of unspecified part of left clavicle, initial encounter for closed fracture; I10 Essential (primary) hypertension; Z91.81 History of falling; W08.XXXA Fall from other furniture, initial encounter; K21.9 Gastro-esophageal reflux disease without esophagitis; E78.5 Hyperlipidemia, unspecified; Z98.41 Cataract extraction status, right eye; Z98.42 Cataract extraction status, left eye; Z85.46 Personal history of malignant neoplasm of prostate; D64.9 Anemia, unspecified; F41.9 Anxiety disorder, unspecified; E87.5 Hyperkalemia; D63.8 Anemia in other chronic diseases classified elsewhere
CPT/HCPCS: 36415; 36600; 70450; 71045; 71275; 72100; 80048; 80053; 80162; 80202; 81001; 82274; 82565; 82607; 82728; 82746; 82805; 83540; 83550; 83605; 83735; 83880; 84132; 84443; 84484; 85025; 85027; 85610; 85730; 87040; 93005; 93306; 93970; 96365; 96366; 96368; 96372; 97110; 97116; 97162; 97166; 97530; 97535; 99285; A9270; J0696; J1160; J1650; J1956; J2060; J2270; J2543; J3370; J7120; Q9967

== ENCOUNTER 2019-10-16 15:34 | Observation (INO) | payer MEDICARE, SELFPAY ==
--- NOTE | ~2019-10-16 | CT_ITS ---
EXAMINATION: CT brain wo con, CT cervical spine wo con EXAM DATE: 10/16/2019 16:32 INDICATION: Fall, head injury. Mental status change. Pain all over. TECHNIQUE: Spiral CT of the head was performed without contrast. Axial, coronal and sagittal images were reviewed. Spiral CT of the cervical spine was performed without contrast. Axial images were rev iewed. Coronal and sagittal reformatted images were also reviewed. The dose-length product (DLP) fo r this examination was 605.33 (accession [id number]), 211.27 (accession [id number]) mGy-cm. The exposure was tailored according to patient size, and iterative reconstruction (ASIR) was used as additional dose reduction technique. Comparison is made to prior examination from 10/04/2019. FINDINGS: HEAD CT: There has been interval development of small region of left frontal lobe loss of sales-white differentiation adjacent to an old small region of encephalomalacia. Likely small acute-subacute infa rction. There is no acute intraparenchymal hemorrhage. No evidence of intraparenchymal brain mass le nathaniel. Punctate old left basal ganglia lacunar infarction. There is mild periventricular and subco rtical hypodensity, nonspecific but probably related to small vessel ischemic disease. There is old s mall right prior lobe subcortical infarction. There is small old right subinsular infarction. There i s moderate prominence of the sulci and ventricles related to cerebral atrophy. There is intracrania l carotid arteriosclerosis. There are no extra-axial collections. There is no mass effect or midlin e shift. Patient has had bilateral ocular lens surgery. Soft tissue is unremarkable. The visualize d sinuses and mastoid air cells are well aerated. CERVICAL CT: There is a layering left pleural effusion There is no evidence of acute cervical fractur e. The odontoid process is intact. Pre-dens space is normal. Prevertebral soft tissue is normal. There are no soft tissue abnormalities identified. There is no disc space widening or traumatic vert ebral body subluxation suspected. Moderate to severe right facet arthropathy at C4-5, moderate to se sidney disc disease C5-6 and C6-7. Lesser spondylosis other levels. A detailed level by level evaluati on of spondylosis can be added as addendum if requested. IMPRESSION: 1. Interval development of acute to subacute small left frontal lobe infarction posteriorly. 2. Chronic age related findings. 3. Small old infarctions. 4. Cervical spondylosis without fracture. 5. Left pleural effusion. Reviewed, dictated and finalized at location A. E INSURANCE SALES REPRESENTATIVE IMPRESSION: 1. Interval development of acute to subacute small left frontal lobe infarctio n posteriorly. 2. Chronic age related findings. 3. Small old infarctions. 4. Cervical spondylosis without fracture. 5. Left pleural effusion.
--- NOTE | ~2019-10-16 | MR_ITS ---
EXAMINATION: MR brain/brain stem wo/w con EXAM DATE: 10/17/2019 14:32 INDICATION: Stroke. TECHNIQUE: Magnetic resonance imaging (MRI) of the brain/brain stem obtained without contrast. Sagit johny T1, axial diffusion, gradient echo (T2*), T1, T2, FLAIR sequences obtained. Patient was then inj ected with 11 cc intravenous Multihance contrast. Axial and coronal postcontrast T1 weighted sequence s obtained. Comparison is made to prior examination from 02/17/2013. FINDINGS: Study is limited due to patient motion. There are no areas of restricted diffusion to sug gest acute infarction. There is no acute hemorrhage seen on the T2*, a hemosiderin sensitive sequenc e. No intraparenchymal brain mass lesion. There is mild periventricular and subcortical T2/FLAIR sig nal hyperintensity, nonspecific but probably related to small vessel ischemic disease (microangiopath y). There is ventricular prominence out of proportion to sulci which is suspected most likely centr al atrophy rather than hydrocephalus. Normal pressure hydrocephalus cannot be excluded (clinical tri ad ataxia/gait disturbance, dementia, urinary incontinence). Small region of right parietal lobe ence phalomalacia, expected evolution of the infarction in 2012. There are no extra-axial collections. F low voids are seen in the cerebral arteries on the T2-weighted sequences consistent with their expect ed patency. The orbits are unremarkable. Soft tissue is unremarkable. There are no areas of abnorm al enhancement on the postcontrast images. IMPRESSION: 1. Small right parietal encephalomalacia, old infarction. 2. Chronic age related findings. Reviewed, dictated and finalized at location A.
--- NOTE | ~2019-10-16 | XR_ITS ---
EXAMINATION: XR foot LT min 3V, XR ankle LT min 3V EXAM DATE: 10/16/2019 16:15 INDICATION: Initial encounter following injury, with pain of the left foot, ankle. TECHNIQUE: Left foot dorsoplantar, lateral and oblique projections obtained and reviewed. Left ankle frontal, lateral and oblique projections obtained and reviewed. There is no prior study for compari son. 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 No appreciable overlying soft tissue swelling. The le ft ankle mortise appears intact. There is no subcutaneous gas. The soft tissue is unremarkable. There are no radiopaque foreign bodies. There is mild to moderate first MTP primary osteoarthritis. 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 This finding has been indicated, marked on the exami nation for review, clinical correlation. Reviewed, dictated and finalized at location A. 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 This fin ding has been indicated, marked on the examination for review, clinical correla tion.
[2019-10-16 15:40] VITALS: BP 110/69; PULSE 106; RESP 27; TEMP 36.7
[2019-10-16 15:52] VITALS: PULSE 86
--- NOTE | 2019-10-16 15:56 | ED.WEAKNESS ---
HPI - Weakness General Chief complaint: Weakness Stated complaint: pain all over Time Seen by Provider: 10/16/19 15:53 Source: patient and family Mode of arrival: EMS Limitations: no limitations History of Present Illness HPI Narrative: An 84 y/o male presents to the ED, via EMS from [place], with c/o generalized weakness and increasing confusion. Per patient's family, the patient was discharged from [facility] on 10/10/19 after being diagnosed with pneumonia and left sided pulmonary embolism. The patient was discharged to [place] for rehab and has been there since. Family adds that he fell out of his bed at [place] on 10/12/19. The family also states that the last 3 days he has not been eating or drinking and has been confused. The pt reports left foot pain and slight cough, but denies NARVAEZ. He notes that he has been intermittently hurting all over for the past 3 days, but does not have this pain in the ED. Pt had Tylenol x2 at 1300 today. 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 MD Complaint: generalized weakness Onset (ago): day(s) (3) Duration: constant Location: generalized Context: recent illness Associated symptoms: confusion and other (Decreased food and liquid intake, left foot pain, slight cough) Related Data Home Medications Medication Instructions Recorded Confirmed Adult One Daily Multivitamin 0.4 mg PO DAILY 09/08/19 09/30/19 ascorbic acid (vitamin C) 500 mg PO DAILY 09/08/19 09/30/19 baclofen 10 mg PO DAILY 09/08/19 10/01/19 buspirone 5 mg PO DAILY 09/08/19 10/01/19 potassium chloride 20 meq PO DAILY 09/08/19 09/30/19 simvastatin 20 mg PO HS 09/08/19 10/01/19 vitamin E 1,000 unit PO DAILY 09/08/19 09/30/19 Allergies Allergy/AdvReac Type Severity Reaction Status Date / Time No Known Allergies Allergy Verified 09/08/19 14:05 Review of Systems Review of Systems: All systems reviewed & are unremarkable except as noted in HPI and below Constitutional: Constitutional: Reports weakness (Generalized) and Reports other (Decreased food and liquid intake) Respiratory: Respiratory: Reports cough (Slight) Musculoskeletal: Musculoskeletal: Reports arthralgias (Left foot) Neurologic: Reports confusion and Denies headache(s) [facility] Family History Family History Daughter Breast cancer Sibling Cerebrovascular accident Social History Social History Social History: 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 He has been to his for 53 years. He is a former smoker and quit smoking in 1964. He occasionally drinks a glass of wine. Code status: Full code per EMR Smoking status: Never smoker Gender identity (if verbalized by the patient): Male Spiritual care concerns: No Exam Const: General: no acute distress, well developed and ill appearing Orientation/consciousness: oriented to person and oriented to place HENMT: Head: normocephalic Ears: external ears normal General nose exam: Normal external nose present Eyes: General: appearance normal, both eyes and all related structures Conjunctivae: conjunctivae normal Neck: Neck: normal visual inspection and full ROM Chest: Chest palpation & inspection: normal inspection of the chest and no tenderness Resp: Effort & Inspection: normal respiratory effort Auscultation: clear to auscultation bilaterally Cardio: Rhythm: abnormal rhythm irregularly irregular GI: GI Palp: No abdominal tenderness and Yes Soft to palpation Skin: General skin exam: normal color and turgor normal Neuro: General: oriented to person and oriented to place Cranial nerves: Yes CN's II-XII intact bilaterally Cognition (Neuro): normal cognition Speech: normal speech Motor exam (neuro): Other motor observations present (chronic left hemiparesis) Extrem: General: normal
--- NOTE | 2019-10-16 16:04 | ECG_ITS ---
Measurements Intervals [place] Rate: 110 P: MS: 0 QRS: 65 QRSD: 95 T: -44 QT: 293 QTc: 397 Interpretive Statements ATRIAL FIBRILLATION WITH RAPID VENTRICULAR RESPONSE NONSPECIFIC ST & T-WAVE ABNORMALITY- INF/LAT LEADS BASELINE ARTIFACT- I, III, AVR, AVL, AVF ABNORMAL ECG Electronically Signed On 10-17-2019 8:21:18 CDT by Tez Ramos D.O.
[2019-10-16 16:38] LABS: Basophils Absolute Auto 0.1 K/mm3 (0.0-0.1); Basophils Percent Auto 0.4 % (0.2-1.2); Eosinophils Percent Auto 0.1 % (0-4.4); Hematocrit 31.6 % (42.0-52.0); Immature Granulocyte Absolute 0.26 K/mm3 (0.00-0.031); Immature Granulocyte Percent A 1.6 % (0-0.5); Lymphocytes Absolute Auto 1.22 K/mm3 (0.9-3.2); Lymphocytes Percent Auto 7.6 % (18.3-44.2); Mean Corpuscular HGB Conc 31.6 g/dl (32-36); Mean Corpuscular Hemoglobin 29.5 pg (26-34); Mean Corpuscular Volume 93.2 fl (80-100); Mean Platelet Volume 11.3 fl (7.4-10.4); Monocytes Absolute Auto 1.3 K/mm3 (0.1-0.6); Monocytes Percent Auto 8.2 % (2.6-8.5); Neutrophils Absolute Auto 13.2 K/mm3 (1.3-6.7); Neutrophils Percent Auto 82.1 % (45.5-73.1); Platelet Count Result 352 k/mm3 (150-375); Red Blood Count 3.39 M/mm3 (4.6-6.20); Red Cell Distribution Width 19.1 % (11.5-14.5)
[2019-10-16] MEDS: SODIUM CHLORIDE 0.9% IV 1,000 ML 999 ML IV CONT ×2 (16:40)
[2019-10-16 16:50] LABS: Alanine Aminotransferase 23 U/L (4-50); Albumin Level 3.2 g/dL (3.5-5.1); Alkaline Phosphatase 144 U/L (38-126); Aspartate Amino Transferase 31 U/L (17-59); Bilirubin,Total 0.7 mg/dL (0.2-1.3); Blood Urea Nitrogen 30 mg/dL (9-20); Calcium 9.4 mg/dL (8.4-10.2); Carbon Dioxide 29 mmol/L (22-30); Chloride 99 mmol/L (98-107); Estimated Glomerular Filt Rate > 60; Glucose 135 mg/dL (75-110); Sodium 134 mmol/L (137-145)
[2019-10-16 16:59] LABS: INR 1.3; Prothrombin Time 15.7 Seconds (11.1-14.7)
[2019-10-16 19:06] LABS: Add Urine Microscopic? YES; Appearance Urine Clear (Clear); Bilirubin Urine Negative (Negative); Blood Urine Negative (Negative); Color Urine Yellow (Yellow); Glucose Urine UA Negative (Negative); Ketones Urine Negative (Negative); Leukocyte Esterase Ur Negative LEU/UL (Negative); Mucus Urine Rare /lpf; Nitrate Urine Negative (Negative); Protein Urine Negative (Negative); RBC Urine 0-2 /hpf (0-2); Specific Grav Ur 1.021 (1.001-1.035); Squamous Epithelial Cell Urine Rare /hpf (Few); Urobilinogen Urine Negative mg/dL (<2.0); WBC Urine 0-3 /hpf
[2019-10-16 20:22] VITALS: BP 120/88; PULSE 94; RESP 20; TEMP 36.1; O2SAT 97
--- NOTE | 2019-10-16 20:24 | PC.NURSE ---
This patient, Hilton Joiner, was admitted to Medical Room 258-01. Patient/family oriented to hospital policies and general routines including ID bracelet, bed and alarms, visiting hours, pain management, procedures, bathroom and other care routines, personal items, smoking policy, room service/diet, and visiting hours. Valuables list has been completed. Information on how to activate the Rapid Response Team has been discussed. Patient/Family are encouraged to report perceived risks to care and to ask questions if they do not understand what they are told or what they should do.
[2019-10-17] VITALS (11 sets, daily range): BP systolic 109–114; BP diastolic 67–84; PULSE 82–135; RESP 16–22; TEMP 36.7–36.8; O2SAT 97–98
[2019-10-17] MEDS: TRAMADOL HCL 50 MG TABLET PO ×3 (01:44→20:21)
--- NOTE | 2019-10-17 03:25 | PC.NURSE ---
Daylight Savings Time For Daylight Savings Time Ending in the Fall - Clocks are moved back. For Daylight Savings Time Beginning in the Spring - Clocks are moved ahead. For [facility], the time of change occurs at 0200 hrs. Time is taken from the cocktail server. This entry on the patient's chart recognizes the change in time reflected during documentation. Example: 2 entries for vital signs may be charted for 0200 hrs.
--- NOTE | 2019-10-17 04:02 | PM.IMHP ---
H&P: HPI History of Present Illness Chief complaint: Generalized pain, decreased oral intake Narrative: Date and time of patient contact: 10/17/2019 at 3:20 a.m. Hilton Joiner is a 84 year old male with past medical history of recent hospitalization September 30 through October 10 due to pneumonia, metabolic encephalopathy, new onset atrial fibrillation, andRight lower lobe subsegmental pulmonary embolism to the ER from [facility] via EMS due to generalized pain and decreased oral intake. I am familiar with the patient as I admitted and 1st prior hospitalization. Source of information is from past medical records and ER reported the patient is a poor historian. The patient is currently alert and oriented to person, year, and name of the current president. He is confused as to the month and thinks that he is at [place]. The patient was sent in as he was having generalized pain. During his last hospitalization the patient would have periods where he would does cry out in pain and was difficult to localize pain. At the time of my evaluation the patient cried out in pain when I 1st touch his foot however on repeat exam I did not elicit any foot pain. He had an x-ray in the ER which was negative for acute process with possible congenital abnormality of the 5th metatarsal. However this was not in the area that had been palpated that elicited his the initial pain response. The patient had evidently had decreased appetite at the [facility] and was spitting out his food and medications. However since he is arrived to the medical floor the patient has taken his pain medications without difficulty. The patient is able to follow simple commands but is responses were slow. He has some mild facial asymmetry with some droop to the left side of the mouth. His words are intermittently slurred. Patient denies any abdominal pain and states they thinks he had a bowel movement in the last day or so. He denies any difficulty with urination. He does not know why he has been brought to the hospital. Review of Systems Review of Systems: Narrative: Review of systems was attempted but limited as patient is and extremely poor historian. COUNTS INCLUDE 234 BEDS AT THE [facility] Past Medical History Medical History (Updated 10/17/19 @ 04:28 by Kita Apodaca DO) Anemia of chronic disease Anxiety Atrial fibrillation Bradycardia Closed fracture of left clavicle CVA (cerebral vascular accident) Residual left-sided weakness ataxia and vertigo 2010 with recurrent CVA February 2013 with right parietal lobe subacute infarction Dementia Diastolic dysfunction Noted on echocardiogram from April 2018 with pseudonormal grade 2 diastolic dysfunction and eat ejection fraction of 70-75%. Mild right ventricular hypokinesis, mild mitral valve regurgitation, mild left atrial enlargement Essential hypertension GERD (gastroesophageal reflux disease) HLD (hyperlipidemia) Hx of brachytherapy Osteoarthritis With severe degenerative changes of bilateral shoulders Pneumonia with CTA of the chest 10/04/2019 demonstrating left lower lobe masslike opacity malignancy or possibly necrotic pneumonia with soft tissue extension into the hilum, right lower lobe pulmonary emboli, complicated by metabolic acidosis has subsequently resolved with treatment of the pneumonia and transient hyperkalemia also resolved Prostate cancer Status post brachytherapy 2008 Pulmonary emboli Right lower lobe subsegmental 10/04/2019 Surgical History Surgical History H/O inguinal hernia repair Left History of bilateral cataract extraction Hx of tonsillectomy Family History Family History Daughter Breast cancer Sibling Cerebrovascular accident Social History Social History (Updated 10/17/19 @ 04:31 by Kita Apodaca DO) Social History: 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
[2019-10-17] MEDS: METOPROLOL TARTRATE INJ 5 MG/5 ML VIAL IV PUSH (06:22)
[2019-10-17] MEDS: POTASSIUM CHLORIDE 20 MEQ TABLET.ER PO (08:29)
[2019-10-17] MEDS: ASCORBIC ACID 500 MG TABLET PO (08:30)
[2019-10-17] MEDS: busPIRone HCL 5 MG TABLET PO (08:30)
[2019-10-17] MEDS: BACLOFEN 10 MG TABLET PO (08:30)
[2019-10-17] MEDS: METOPROLOL SUCCINATE EXT REL 100 MG TABCR 200 MG PO (08:31)
[2019-10-17] MEDS: THERAPEUTIC MULTIVITAMINS/MINERALS TAB (*BKC) 1 TABLET PO (08:31)
[2019-10-17] MEDS: VITAMIN E 1,000 UNIT CAPSULE 1000 UNIT PO (08:32)
--- NOTE | 2019-10-17 10:00 | PC.NURSE ---
Dr. Hobbs notified of patient's intermittent elevated HR. No new orders received.
--- NOTE | 2019-10-17 16:21 | PM.IMPN ---
Progress Note: A&P Assessment and Plan (1) Acute CVA (cerebrovascular accident): Code(s): I63.9 - Cerebral infarction, unspecified Status: Acute Assessment and Plan: CT brain showing interval development of acute to subacute small left frontal lobe infarction posteriorly. Brain MRI showing no acute infarcts. Continue chronic anticoagulation with Xarelto Hx of old CVAs; Continue Lipitor. (2) Atrial fibrillation with RVR: Code(s): I48.91 - Unspecified atrial fibrillation Status: Acute Assessment and Plan: having burst of RVR but mostly rate controlled. Pateint has been spitting out meds at times so may be contributing to intermittent heart rate control Continue [place] and Cardizem Continue to monitor on telemetry (3) Leukocytosis: Qualifiers: Leukocytosis type: unspecified Qualified Code(s): D72.829 - Elevated white blood cell count, unspecified Code(s): D72.829 - Elevated white blood cell count, unspecified Status: Acute Assessment and Plan: chronic low-grade leukocytosis but no clinical evidence of infectious process. Differential showing left shift. CTA 10/04 showing left lower lobe segmental masslike opacity, malignancy or possibly necrotic pneumonia; will need follow-up CT scan at the end of October. Completed course of abx. Hold off on repet images now unless becomes symtomatic (4) Pulmonary emboli: Qualifiers: Pulmonary embolism type: other Chronicity: chronic Acute cor pulmonale presence: without acute cor pulmonale Qualified Code(s): I27.82 - Chronic pulmonary embolism Code(s): I26.99 - Other pulmonary embolism without acute cor pulmonale Status: Acute Assessment and Plan: CTA on 10/04/19 showing RLL segmental PE Continue home Xarelto. (5) Essential hypertension: Code(s): I10 - Essential (primary) hypertension Status: Acute Assessment and Plan: Blood pressure reviewed on 10/16 Blood pressure well controlled. Continue Metoprolol and Cardizem (6) Dementia: Qualifiers: Dementia type: unspecified type Dementia behavioral disturbance: with behavioral disturbance Qualified Code(s): F03.91 - Unspecified dementia with behavioral disturbance Code(s): F03.90 - Unspecified dementia without behavioral disturbance Status: Acute Assessment and Plan: Mood stable. Continue Seroquel Subjective Date/time seen: 10/17/19 16:21 Interval history: 84yo male here for generalized pain and poor oral intake and found to have an acute CVA. Patient asleep upon entering the room but he states he is in 'terrible pain' when he is awoken. He initially states I don't know' when asked where the pain is located. He later states he has low back and bilateral shoulder pain. He denies CP. He is alert but confused so hx is limited. Review of Systems Review of Systems: ROS unobtainable: unobtainable due to mental status Exam Narrative: Exam Narrative: Gen - NARD lying semi-recumbent in bed Chest - CTA bilaterally, nml RR CV - irregularly irregular, tachy. Tele showing AFIb with RVR Abd - soft, NT/ND, +BS Ext - tenderness to touch either foot. no localized tenderness except possibly the dorsum of the left foot. Neuro - alert, confused. mild right facial droop but more weakness in the left dorsiflexion with left hand contractures. Psych - calm and cooperative. Follows commands Skin - warm and dry Objective Data Vital Signs Vital Signs: Vital Signs - 24 hr 10/16/19 15:40 10/16/19 15:52 10/16/19 20:22 Temperature 98.1 F 97.0 F L Pulse Rate 106 H 86 94 Respiratory Rate 27 H 20 Blood Pressure 110/69 120/88 Pulse Oximetry 97 10/17/19 00:00 10/17/19 04:00 10/17/19 06:00 Temperature 98.2 F Pulse Rate 125 H 126 H 106 H Respiratory Rate 22 H Blood Pressure 109/84 Pulse Oximetry 98 10/17/19 06:22
--- NOTE | 2019-10-17 17:55 | PC.NURSE ---
Patient continues to have periods of time when his heartrate is in the 120s-130s with rapid recovery back into the 100s-110s.
--- NOTE | 2019-10-17 17:59 | PC.NURSE ---
HR in the 130s-140s again. Patient remains asymptomatic. Notified Dr. Hobbs.
[2019-10-17] MEDS: RIVAROXABAN 20 MG TABLET PO (18:17)
[2019-10-17] MEDS: ATORVASTATIN 10 MG TABLET PO (20:19)
[2019-10-17] MEDS: QUEtiapine FUMARATE 12.5 MG TABLET PO (20:20)
[2019-10-18] VITALS (7 sets, daily range): BP systolic 105–110; BP diastolic 64–67; PULSE 65–130; RESP 16–18; TEMP 36.3–36.8; O2SAT 95–98
[2019-10-18] MEDS: TRAMADOL HCL 50 MG TABLET PO ×3 (04:10→16:59)
[2019-10-18] MEDS: BACLOFEN 10 MG TABLET PO (07:41)
[2019-10-18] MEDS: ASCORBIC ACID 500 MG TABLET PO (07:41)
[2019-10-18] MEDS: POTASSIUM CHLORIDE 20 MEQ TABLET.ER PO (07:41)
[2019-10-18] MEDS: busPIRone HCL 5 MG TABLET PO (07:41)
[2019-10-18] MEDS: VITAMIN E 1,000 UNIT CAPSULE 1000 UNIT PO (07:42)
[2019-10-18] MEDS: METOPROLOL SUCCINATE EXT REL 100 MG TABCR 200 MG PO (07:42)
[2019-10-18] MEDS: THERAPEUTIC MULTIVITAMINS/MINERALS TAB (*BKC) 1 TABLET PO (07:42)
--- NOTE | 2019-10-18 08:30 | PC.NURSE ---
Patient continues to have intermittent elevated heartrate, up to [address] Hobbs notified by charge nurse Alexandra Momin RN. A.M. doses of Metoprolol and Diltiazem given to patient.
--- NOTE | 2019-10-18 10:50 | PC.NURSE ---
Patient yelling out, stating he is in pain all over . When asked for more specifics, patient states I hurt in my right shoulder, my back, my toes, and my legs . 1100 - Patient given pain pill. Patient immediately yelling and saying pain pill not working. Explained to patient that he needs to give the pill time to work. 1200 - Assisted patient to chair with assistance of 2 CNAs. Patient in recliner chair. 1215 - Patient continues to randomly yell out at times. here and is at bedside talking with patient.
--- NOTE | 2019-10-18 12:00 | PC.NURSE ---
Patient's heartrate in the 70s and 80s now.
--- NOTE | 2019-10-18 12:29 | P.DS_ITS ---
DS: Diagnosis Admitting Diagnosis Admitting Diagnosis: Cerebral infarction, unspecified Discharge Diagnosis (1) Acute CVA (cerebrovascular accident): Code(s): I63.9 - Cerebral infarction, unspecified Status: Acute Assessment and Plan: * CT brain showing interval development of acute to subacute small left frontal lobe infarction posteriorly. * Brain MRI however showing no acute infarcts. * Continue chronic anticoagulation with Xarelto * Hx of old CVAs; Continue Lipitor. (2) Atrial fibrillation with RVR: Code(s): I48.91 - Unspecified atrial fibrillation Status: Acute Assessment and Plan: * having bursts of RVR mostly in the morning before his morning meds * Pateint was spitting out meds at times so may be contributing to intermittent heart rate control * Continue Toprol XL and Cardizem CD in the morning * Add Cardizem CD at night (3) Leukocytosis: Qualifiers: Leukocytosis type: unspecified Qualified Code(s): D72.829 - Elevated white blood cell count, unspecified Code(s): D72.829 - Elevated white blood cell count, unspecified Status: Acute Assessment and Plan: * chronic low-grade leukocytosis but no clinical evidence of infectious process. * Differential showing left shift. * CTA 10/04 showing left lower lobe segmental masslike opacity, malignancy or possibly necrotic pneumonia; will need follow-up CT scan at the end of October. He has completed a course of abx. Cervical spine CT showing left pleural effusion but no mention of mass. Will order repeat CT scan in 2 weeks * Hold off on repeat images now unless becomes symptomatic (4) Pulmonary emboli: Qualifiers: Acute cor pulmonale presence: without acute cor pulmonale Chronicity: chronic Pulmonary embolism type: other Qualified Code(s): I27.82 - Chronic pulmonary embolism Code(s): I26.99 - Other pulmonary embolism without acute cor pulmonale Status: Acute Assessment and Plan: * CTA on 10/04/19 showing RLL segmental PE * Continue home Xarelto. (5) Essential hypertension: Code(s): I10 - Essential (primary) hypertension Status: Acute Assessment and Plan: * Blood pressure reviewed on 10/17 * Blood pressure well controlled. * Continue Metoprolol and Cardizem (6) Dementia: Qualifiers: Dementia behavioral disturbance: with behavioral disturbance Dementia type: unspecified type Qualified Code(s): F03.91 - Unspecified dementia with behavioral disturbance Code(s): F03.90 - Unspecified dementia without behavioral disturbance Status: Acute Assessment and Plan: * Mood stable. * Continue Seroquel (7) Multiple falls: Code(s): R29.6 - Repeated falls Status: Acute Assessment and Plan: * Left foot congenital bony issue. Has tenderness diffusely in the left foot but no localized tenderness to this area * C-spine showing no acute findings. * DS: Summary Hospital Course Reason for hospitalization: 84yo male here for generalized pain and decreased oral intake. Please see H&P for details. Hospital Course: As above Time Spent with Patient Time attestation: Total time spent providing and/or coordinating discharge services:32 minutes Time spent: Greater than 30 minutes Exam Narrative: Exam Narrative: Gen - NARD lying almost flat in bed Chest - lungs clear anteriorly, nml RR CV - irregularly irregular, tachy. Tele showing AFIb with elevated rate at
--- NOTE | 2019-10-18 12:29 | PM.DS ---
DS: Diagnosis Admitting Diagnosis Admitting Diagnosis: Cerebral infarction, unspecified Discharge Diagnosis (1) Acute CVA (cerebrovascular accident): Code(s): I63.9 - Cerebral infarction, unspecified Status: Acute Assessment and Plan: CT brain showing interval development of acute to subacute small left frontal lobe infarction posteriorly. Brain MRI however showing no acute infarcts. Continue chronic anticoagulation with Xarelto Hx of old CVAs; Continue Lipitor. (2) Atrial fibrillation with RVR: Code(s): I48.91 - Unspecified atrial fibrillation Status: Acute Assessment and Plan: having bursts of RVR mostly in the morning before his morning meds Pateint was spitting out meds at times so may be contributing to intermittent heart rate control Continue Toprol XL and Cardizem CD in the morning Add Cardizem CD at night (3) Leukocytosis: Qualifiers: Leukocytosis type: unspecified Qualified Code(s): D72.829 - Elevated white blood cell count, unspecified Code(s): D72.829 - Elevated white blood cell count, unspecified Status: Acute Assessment and Plan: chronic low-grade leukocytosis but no clinical evidence of infectious process. Differential showing left shift. CTA 10/04 showing left lower lobe segmental masslike opacity, malignancy or possibly necrotic pneumonia; will need follow-up CT scan at the end of October. He has completed a course of abx. Cervical spine CT showing left pleural effusion but no mention of mass. Will order repeat CT scan in 2 weeks Hold off on repeat images now unless becomes symptomatic (4) Pulmonary emboli: Qualifiers: Acute cor pulmonale presence: without acute cor pulmonale Chronicity: chronic Pulmonary embolism type: other Qualified Code(s): I27.82 - Chronic pulmonary embolism Code(s): I26.99 - Other pulmonary embolism without acute cor pulmonale Status: Acute Assessment and Plan: CTA on 10/04/19 showing RLL segmental PE Continue home Xarelto. (5) Essential hypertension: Code(s): I10 - Essential (primary) hypertension Status: Acute Assessment and Plan: Blood pressure reviewed on 10/17 Blood pressure well controlled. Continue Metoprolol and Cardizem (6) Dementia: Qualifiers: Dementia behavioral disturbance: with behavioral disturbance Dementia type: unspecified type Qualified Code(s): F03.91 - Unspecified dementia with behavioral disturbance Code(s): F03.90 - Unspecified dementia without behavioral disturbance Status: Acute Assessment and Plan: Mood stable. Continue Seroquel (7) Multiple falls: Code(s): R29.6 - Repeated falls Status: Acute Assessment and Plan: Left foot congenital bony issue. Has tenderness diffusely in the left foot but no localized tenderness to this area C-spine showing no acute findings. DS: Summary Hospital Course Reason for hospitalization: 84yo male here for generalized pain and decreased oral intake. Please see H&P for details. Hospital Course: As above Time Spent with Patient Time attestation: Total time spent providing and/or coordinating discharge services:32 minutes Time spent: Greater than 30 minutes Exam Narrative: Exam Narrative: Gen - NARD lying almost flat in bed Chest - lungs clear anteriorly, nml RR CV - irregularly irregular, tachy. Tele showing AFIb with elevated rate at times Abd - soft, NT/ND, +BS Ext - no pedal edema Neuro - alert, confused. Skin - warm and dry Discharge Plan Discharge Attending physician on discharge: Kaushik Hobbs Consulting providers: Kaushik Hobbs Discharging Clinician: Kaushik Hobbs Anticipated Discharge Date/Time: 10/18/19 13:05 Patient Disposition: SNF Activity: as tolerated Diet: low sodium Patient Instructions: Rivaroxaban (By mouth) Stand Alone Forms
[2019-10-18] MEDS: RIVAROXABAN 20 MG TABLET PO (16:59)
== END 2019-10-18 18:50 ==
LOC: ANHED 17:58 → ANH2MED 18:23
PROVIDERS: Admitting Provider Internal Medicine; Emergency Provider Emergency Medicine; Visit Provider Internal Medicine
DX: I63.9 Cerebral infarction, unspecified (principal); I48.91 Unspecified atrial fibrillation; D72.829 Elevated white blood cell count, unspecified; I26.99 Other pulmonary embolism without acute cor pulmonale; I10 Essential (primary) hypertension; F03.90 Unspecified dementia, unspecified severity, without behavioral disturbance, psychotic disturbance, mood disturbance, and anxiety; R29.6 Repeated falls; I69.354 Hemiplegia and hemiparesis following cerebral infarction affecting left non-dominant side; E78.5 Hyperlipidemia, unspecified; Z66 Do not resuscitate; Z79.01 Long term (current) use of anticoagulants; Z79.899 Other long term (current) drug therapy; Z85.46 Personal history of malignant neoplasm of prostate; Z87.891 Personal history of nicotine dependence
CPT/HCPCS: 36415; 70450; 70553; 72125; 73610; 73630; 80053; 81001; 85025; 85610; 85730; 87081; 93005; 96360; 96361; 96374; 99285; A9270; A9577; G0378; J7030

== ENCOUNTER 2019-11-04 13:31 | Outpatient (CLI) | payer MEDICARE, SELFPAY ==
--- NOTE | ~2019-11-04 | CT_ITS ---
EXAMINATION: CT chest wo con DATE: 11/04/2019 14:00 INDICATION: elevated white blood cell count,unspecified TECHNIQUE: Computed tomography (CT) of the chest was performed without intravenous contrast. Addition al 3D reconstructions utilizing coronal maximum intensity projection (MIP) were performed. Automated exposure control and iterative reconstruction technique were employed. The dose-length product was 17 1.58 mGy-cm. COMPARISON: CT dated 10/04/2019 FINDINGS: No significant change in a posterior layering small left pleural effusion. Improved aeration in the s uperior segment of the left lower lobe with decrease in the opacities likely representing atelectasis along the periphery of an approximately 6.5 x 5.0 cm mass in the left lower lobe which remains adalberto rning for malignancy. Minimal dependent atelectasis in the right lower lobe. No pulmonary edema or ri ght-sided pleural effusion. Heart size is normal. Atherosclerotic coronary artery calcification is. N o pericardial effusion. Thoracic aorta is normal in caliber. There is enlargement of the central pulm onary arteries consistent with pulmonary arterial hypertension. No pathologically enlarged thoracic l ymphadenopathy. 1.6 cm cyst in the right hepatic lobe. 6 cm left renal cyst. Moderate lower cervical and mild thoracic spondylosis. Mild left and moderate right glenohumeral osteoarthritis. Right rotato r cuff tear. IMPRESSION: 1. Persistent 6.5 x 5.0 cm masslike density in the left lower lobe which remains concerning for malig bert. 2. Small left pleural effusion with likely compressive atelectasis in the dependent left lower lobe. Reviewed, dictated and finalized at location A. IMPRESSION: 1. Persistent 6.5 x 5.0 cm masslike density in the left lower lobe which remain s concerning for malignancy. 2. Small left pleural effusion with likely compressive atelectasis in the depen dent left lower lobe.
== END 2019-11-04 13:32 | disposition home or self-care (01) ==
LOC: ANHIMG 13:36
PROVIDERS: PCP Family Medicine; Visit Provider Internal Medicine
DX: D72.829 Elevated white blood cell count, unspecified (principal); J90 Pleural effusion, not elsewhere classified
CPT/HCPCS: 71250